=== PATIENT | male | born 1985 | race Caucasian/White ===

== ENCOUNTER 2019-08-29 11:08 | Emergency (ER) | payer OTHER ==
--- NOTE | 2019-08-29 12:00 | XR ---
EXAMINATION TYPE: XR chest 2V DATE OF EXAM: 08/29/2019 COMPARISON: NONE TECHNIQUE: PA and lateral views submitted. HISTORY: Chest pain FINDINGS: The lungs are clear and there is no pneumothorax, pleural effusion, or focal pneumonia. Inspiration with no overt failure. Biapical pleural thickening. IMPRESSION: 1. No acute process.
[2019-08-29] MEDS ORDERED: ONDANSETRON ODT 4 MG TAB PO STA (12:07)
[2019-08-29] MEDS ORDERED: HYDROcodone/APAP 5-325MG 1 EACH TAB PO STA (12:07)
[2019-08-29 12:28] LABS: Basophils % (A) 0 %; Eosinophils # (A) 0.1 k/uL (0-0.7); Eosinophils % (A) 0 %; HCT 48.6 % (39.0-53.0); HGB 16.9 gm/dL (13.0-17.5); Lymphocytes # (A) 1.9 k/uL (1.0-4.8); Lymphocytes % (A) 12 %; MCH 32.4 pg (25.0-35.0); MCHC 34.9 g/dL (31.0-37.0); MCV 93.1 fL (80.0-100.0); Mean Platelet Volume 8.6; Monocytes # (A) 0.5 k/uL (0-1.0); Monocytes % (A) 3 %; Neutrophils # (A) 12.8 k/uL (1.3-7.7); Neutrophils % (A) 83 %; Platelet Count 221 k/uL (150-450); RBC 5.22 m/uL (4.30-5.90); RDW 12.9 % (11.5-15.5); WBC 15.4 k/uL (3.8-10.6)
[2019-08-29] MEDS ORDERED: ALPRAZolam 1 MG TAB PO STA (12:37)
[2019-08-29 12:39] LABS: INR 0.9 (<1.2); Partial Thromboplastin Time 24.3 sec (22.0-30.0); Prothrombin Time 10.1 sec (9.0-12.0)
[2019-08-29 12:43] LABS: ALT 41 U/L (21-72); AST 28 U/L (17-59); African American GFR (CKD) >90 (>60 ml/min/1.73 sqM); Alkaline Phosphatase 68 U/L (38-126); Anion Gap 11 mmol/L; Blood Urea Nitrogen 14 mg/dL (9-20); Calcium 10.2 mg/dL (8.4-10.2); Carbon Dioxide 24 mmol/L (22-30); Chloride 105 mmol/L (98-107); Glucose 96 mg/dL (74-99); Magnesium 1.9 mg/dL (1.6-2.3); Non-African American GFR(CKD) >90 (>60 ml/min/1.73 sqM); Potassium 4.2 mmol/L (3.5-5.1); Sodium 140 mmol/L (137-145); Total Bilirubin 0.7 mg/dL (0.2-1.3); Total Protein 8.6 g/dL (6.3-8.2)
--- NOTE | 2019-08-29 13:17 | CT ---
EXAMINATION TYPE: CT abdomen pelvis w con DATE OF EXAM: 08/29/2019 COMPARISON: None INDICATION: Left sided pain with nausea and bowel changes. DLP: 1271.2 mGycm, Automated exposure control for dose reduction was used. CONTRAST: 100 mL of Isovue 300. Study performed without Oral Contrast TECHNIQUE: Axial images were obtained from above the diaphragm to the pubic rami in the axial plane a t 5 mm thick sections. Reconstructed images are reviewed on the computer in the coronal plane. FINDINGS: Limited CT sections are obtained the lung bases. The lung bases are clear. CT ABDOMEN: Liver: Normal Spleen: Normal Pancreas: Normal Adrenal glands: The adrenal glands are normal. Gallbladder: Normal Kidneys: No masses are evident. No hydronephrosis is present. No cysts are present. Delayed images were obtained through the kidneys, which remain unremarkable. Aorta: Vascular calcification is within the aorta. Inferior vena cava: Normal. CT PELVIS: Loops of bowel within the abdomen and pelvis are normal. There are loops of bowel which are incom pletely distended or lack oral contrast limiting their evaluation. Diverticulosis without acute diver ticulitis is within the proximal sigmoid colon. There are some small bowel loops distended with fluid and left lower quadrant could be some focal ileus. Appendix: Normal as visualized. Urinary bladder: Normal. Genitourinary structures: Prostate appears at the upper limits for size Osseous structures: No suspicious lytic or sclerotic lesions. IMPRESSIONS: 1. Diverticulosis without acute diverticulitis. 2. Mild focal ileus left lower quadrant of uncertain etiology.
--- NOTE | 2019-08-29 13:47 | ED ---
General Adult HPI - General Chief complaint: Chest Pain Stated complaint: abdominal & chest pain Time Seen by Provider: 08/29/19 11:35 Source: patient Mode of arrival: ambulatory Limitations: no limitations - History of Present Illness Initial comments: Patient complains of multiple issues. He has chest pain. He has belly pain. Symptoms have been present and getting worse for couple days. He has taken no medicines. He was not doing anything this began. He has no fever or chills. He has no focal weakness. He has no blood in the stool. He has no diaphoresis. He has no vomiting. He has no headache. His belly pain is in the left lower quadrant. It does not radiate anywhere. Nothing makes it better or worse. The chest pains in the middle of the chest. He complains of anxiety as well. He doesn't feel short of breath however. He has no pain or swelling in the arms or legs. He has 0 risk factors for pulmonary embolism or DVT. - Related Data Allergies Allergy/AdvReac Type Severity Reaction Status Date / Time No Known Allergies Allergy Verified 08/29/19 11:21 Review of Systems ROS Statement: Those systems with pertinent positive or pertinent negative responses have been documented in the HPI. ROS Other: All systems not noted in ROS Statement are negative. Past Medical History Past Medical History: No Reported History History of Any Multi-Drug Resistant Organisms: None Reported Past Surgical History: Orthopedic Surgery Past Psychological History: Bipolar, Depression Smoking Status: Never smoker Past Alcohol Use History: Occasional Past Drug Use History: Marijuana General Exam Limitations: no limitations General appearance: alert, in no apparent distress Head exam: Present: atraumatic, normocephalic, normal inspection Eye exam: Present: normal appearance, PERRL, EOMI. Absent: scleral icterus, c onjunctival injection, periorbital swelling ENT exam: Present: normal exam, mucous membranes moist Neck exam: Present: normal inspection. Absent: tenderness, meningismus, lymphadenopathy Respiratory exam: Present: normal lung sounds bilaterally. Absent: respiratory distress, wheezes, rales, rhonchi, stridor Cardiovascular Exam: Present: regular rate, normal rhythm, normal heart sounds. Absent: systolic murmur, diastolic murmur, rubs, gallop, clicks GI/Abdominal exam: Present: soft, normal bowel sounds. Absent: distended, tenderness, guarding, rebound, rigid Extremities exam: Present: normal inspection, full ROM, normal capillary refill. Absent: tenderness, pedal edema, joint swelling, calf tenderness Back exam: Present: normal inspection Neurological exam: Present: alert, oriented X3, CN II-XII intact Psychiatric exam: Present: normal affect, normal mood Skin exam: Present: warm, dry, intact, normal color. Absent: rash Course Vital Signs 08/29/19 08/29/19 08/29/19 11:19 11:52 12:00 Temperature 98.4 F Pulse Rate 83 87 85 Respiratory 19 27 H 20 Rate Blood Pressure 129/87 119/86 O2 Sat by Pulse 96 96 Oximetry 08/29/19 08/29/19 12:30 13:00 Temperature Pulse Rate 84 91 Respiratory 18 20 Rate Blood Pressure 111/91 122/94 O2 Sat by Pulse 97 96 Oximetry EKG Findings - EKG Comments: EKG Findings:: Twelve-lead EKG shows ventricular rate 76 bpm, normal [place] interval and QRS complexes, no ST elevation or depression, interpreted by me as normal sinus rhythm. Medical Decision Making - Medical Decision Making Patient has chest pain, belly pain. His laboratory studies do not show any acute emergency. Chest x-ray is normal. EKG is normal. CT abdomen and pelvis shows diverticulosis without diverticulitis. There is evidence of ileus. Could be causing his symptoms. He could have a viral syndrome. There is no evidence of any acute emergency condition that would require further workup or admission the hospital or surgery. At this time because he is able to tolerate oral intake and is feeling better after oral alprazolam I feel that he is stable and appropriate for outpatient follow-up. - Lab Data Result diagrams: 08/29/19 11:50 08/29/19 11:50 Lab Results 08/29/19 08/29/19 08/29/19 Range/Units 11:50 11:50 11:50 WBC 15.4 H (3.8-10.6) k/uL RBC 5.22 (4.30-5.90) m/uL Hgb 16.9 (13.0-17.5) gm/dL Hct 48.6 (39.0-53.0) % MCV 93.1 (80.0-100.0) fL MCH 32.4 (25.0-35.0) pg MCHC 34.9 (31.0-37.0) g/dL RDW 12.9 (11.5-15.5) % Plt Count 221 (150-450) k/uL Neutrophils % 83 % Lymphocytes % 12 % Monocytes % 3 % Eosinophils % 0 % Basophils % 0 % Neutrophils # 12.8 H (1.3-7.7) k/uL Lymphocytes # 1.9 (1.0-4.8) k/uL Monocytes # 0.5 (0-1.0) k/uL Eosinophils # 0.1 (0-0.7) k/uL Basophils # 0.0 (0-0.2) k/uL PT 10.1 (9.0-12.0) sec INR 0.9 (<1.2) APTT 24.3 (22.0-30.0) sec Sodium 140 (137-145) mmol/L Potassium 4.2 (3.5-5.1) mmol/L Chloride 105 (98-107) mmol/L Carbon Dioxide 24 (22-30) mmol/L Anion Gap 11 mmol/L BUN 14 (9-20) mg/dL Creatinine 0.97 (0.66-1.25) mg/dL Est GFR (CKD-EPI)AfAm >90 (>60 ml/min/1.73 sqM) Est GFR (CKD-EPI)NonAf >90 (>60 ml/min/1.73 sqM) Glucose 96 (74-99) mg/dL Calcium 10.2 (8.4-10.2) mg/dL Magnesium 1.9 (1.6-2.3) mg/dL Total Bilirubin 0.7 (0.2-1.3) mg/dL AST 28 (17-59) U/L ALT 41 (21-72) U/L Alkaline Phosphatase 68 (38-126) U/L Troponin I (0.000-0.034) ng/mL NT-Pro-B Natriuret Pep pg/mL Total Protein 8.6 H (6.3-8.2) g/dL Albumin 5.0 (3.5-5.0) g/dL Lipase 161 (23-300) U/L 08/29/19 08/29/19 Range/Units 11:50 11:50 WBC (3.8-10.6) k/uL RBC (4.30-5.90) m/uL Hgb (13.0-17.5) gm/dL Hct (39.0-53.0) % MCV (80.0-100.0) fL MCH (25.0-35.0) pg MCHC (31.0-37.0) g/dL RDW (11.5-15.5) % Plt Count (150-450) k/uL Neutrophils % % Lymphocytes % % Monocytes % % Eosinophils % % Basophils % % Neutrophils # (1.3-7.7) k/uL Lymphocytes # (1.0-4.8) k/uL Monocytes # (0-1.0) k/uL Eosinophils # (0-0.7) k/uL Basophils # (0-0.2) k/uL PT (9.0-12.0) sec INR (<1.2) APTT (22.0-30.0) sec Sodium (137-145) mmol/L Potassium (3.5-5.1) mmol/L Chloride (98-107) mmol/L Carbon Dioxide (22-30) mmol/L Anion Gap mmol/L BUN (9-20) mg/dL Creatinine (0.66-1.25) mg/dL Est GFR (CKD-EPI)AfAm (>60 ml/min/1.73 sqM) Est GFR (CKD-EPI)NonAf (>60 ml/min/1.73 sqM) Glucose (74-99) mg/dL Calcium (8.4-10.2) mg/dL Magnesium (1.6-2.3) mg/dL Total Bilirubin (0.2-1.3) mg/dL AST (17-59) U/L ALT (21-72) U/L Alkaline Phosphatase (38-126) U/L Troponin I <0.012 (0.000-0.034) ng/mL NT-Pro-B Natriuret Pep 41 pg/mL Total Protein (6.3-8.2) g/dL Albumin (3.5-5.0) g/dL Lipase (23-300) U/L Disposition Clinical Impression: Ileus Disposition: HOME SELF-CARE Condition: Good Instructions (If sedation given, give patient instructions): Ileus (ED) Is patient prescribed a controlled substance at d/c from ED?: No Referrals: None,Stated [Primary Care Provider] - 1-2 days Christophe Valencia MD [STAFF PHYSICIAN] - 1-2 days Schuyler Patel MD [STAFF PHYSICIAN] - 1-2 days
[2019-08-29 14:03] VITALS: BP 114/83; PULSE 94; RESP 16; TEMP 98
== END 2019-08-29 14:03 | disposition home or self-care (01) ==
LOC: EC 11:08
DX: K56.7 Ileus, unspecified (principal); K57.30 Diverticulosis of large intestine without perforation or abscess without bleeding
CPT/HCPCS: 36415; 93005; 83880; 80053; 83690; 83735; 84484; 85025; 85610; 85730; 71046; 74177; 99285; Q9967

== ENCOUNTER 2020-01-27 10:01 | Inpatient (IN) | payer OTHER ==
[2020-01-27] MEDS ORDERED: ONDANSETRON 4 MG/2 ML VIAL IVP STA (10:36)
[2020-01-27] MEDS ORDERED: SODIUM CHLORIDE 0.9% 2,000 ML IV STA (10:36)
[2020-01-27] MEDS ORDERED: KETOROLAC 30 MG/ML 1 ML VIAL IVP STA (10:36)
[2020-01-27] MEDS ORDERED: HYDROmorphone 1 MG/ML 1 ML SYRINGE IVP STA ×3 (10:36→17:05)
[2020-01-27 11:18] LABS: Basophils # (A) 0.1 k/uL (0-0.2); Basophils % (A) 1 %; Eosinophils # (A) 0.2 k/uL (0-0.7); Eosinophils % (A) 2 %; HGB 17.8 gm/dL (13.0-17.5); Lymphocytes # (A) 2.7 k/uL (1.0-4.8); Lymphocytes % (A) 19 %; MCH 32.4 pg (25.0-35.0); MCHC 34.2 g/dL (31.0-37.0); MCV 94.7 fL (80.0-100.0); Mean Platelet Volume 8.5; Monocytes # (A) 0.8 k/uL (0-1.0); Monocytes % (A) 6 %; Neutrophils # (A) 10.3 k/uL (1.3-7.7); Neutrophils % (A) 71 %; Platelet Count 231 k/uL (150-450); RBC 5.49 m/uL (4.30-5.90); RDW 12.8 % (11.5-15.5); WBC 14.5 k/uL (3.8-10.6)
[2020-01-27 11:21] LABS: Appearance,Urine Cloudy (Clear); Bacteria,Urine Moderate /hpf; Bilirubin,Urine Negative (Negative); Blood,Urine Negative (Negative); Color,Urine Yellow; Glucose,Urine (UA) Negative (Negative); Ketones,Urine Negative (Negative); Leukocyte Esterase,Urine Negative (Negative); Mucus,Urine Many /hpf; Nitrite,Urine Negative (Negative); Protein,Urine 1+ (Negative); RBC,Urine 2 /hpf (0-5); Specific Gravity,Urine 1.023 (1.001-1.035); Sperm,Urine Moderate /hpf; Squamous Epithelial Cell,Urine 1 /hpf (0-4); Urobilinogen,Urine <2.0 mg/dL (<2.0); WBC,Urine 3 /hpf (0-5)
[2020-01-27 11:33] LABS: Prothrombin Time 10.6 sec (9.0-12.0)
[2020-01-27 11:39] LABS: Albumin 5.3 g/dL (3.5-5.0); Calcium 10.3 mg/dL (8.4-10.2); Potassium 4.4 mmol/L (3.5-5.1); Total Bilirubin 1.3 mg/dL (0.2-1.3); Total Protein 9.1 g/dL (6.3-8.2)
--- NOTE | 2020-01-27 11:46 | XR ---
EXAMINATION TYPE: XR KUB DATE OF EXAM: 01/27/2020 11:21 AM CLINICAL HISTORY: Right posterior flank pain TECHNIQUE: Single upright image of the abdomen is obtained. COMPARISON: None. FINDINGS: No pneumoperitoneum. Few air-fluid levels in the large and small bowel. Mildly prominent lo ops of centralized small bowel. No suspicious calcification in the abdomen or pelvis. Lung bases are well aerated. IMPRESSION: Findings suggesting mild ileus.
--- NOTE | 2020-01-27 12:18 | CT ---
EXAMINATION TYPE: CT abdomen pelvis w con DATE OF EXAM: 01/27/2020 COMPARISON: 08/29/2019 HISTORY: Rt flank pain CT DLP: 1830.2 mGycm Automated exposure control for dose reduction was used. TECHNIQUE: Helical acquisition of images was performed from the lung bases through the pelvis. CONTRAST: Performed without Oral Contrast and with IV Contrast, patient injected with 100 mL of Isovue 300. FINDINGS: LUNG BASES: No significant abnormality is appreciated. LIVER/GB: No significant abnormality is appreciated. No radiopaque cholelithiasis on CT. PANCREAS: Unremarkable enhancement without ductal dilatation SPLEEN: No splenomegaly. ADRENALS: No nodularity or thickening. KIDNEYS: The kidneys enhance symmetrically without hydronephrosis. FREE AIR: No free air is visualized. ADENOPATHY: No greater than 1 cm short axis lymph node in the abdomen or pelvis. OSSEOUS STRUCTURES: No significant abnormality is seen. BOWEL: Appendix is air-filled and within normal limits. There are numerous colonic diverticula with pericolonic fat stranding in the sigmoid colon and adjacent fascial plane thickening. Foci of air adj acent to the sigmoid colon appear to be located within adjacent diverticula that are thin-walled rath er than pneumoperitoneum. Inspissated secretions are seen within some diverticula. No pericolonic flu id collection to suggest abscess. Additional scattered diverticula are seen throughout the descending colon without pericolonic fat stranding. Mildly dilated loop of small bowel in the IMPRESSION: ACUTE UNCOMPLICATED SIGMOID DIVERTICULITIS.
[2020-01-27] MEDS ORDERED: LEVOFLOXACIN 750MG-D5W PMX 750 MG in DEXTROSE/WATER 1 150ML.BAG IVPB STA (12:35)
[2020-01-27] MEDS ORDERED: metroNIDAZOLE-NS PMX 500 MG in SALINE 1 100ML.BAG IVPB STA (12:35)
--- NOTE | 2020-01-27 12:36 | ED ---
Abdominal Pain HPI - General Chief Complaint: Abdominal Pain Stated Complaint: lower left abd Time Seen by Provider: 01/27/20 10:14 Source: patient, RN notes reviewed, old records reviewed Mode of arrival: ambulatory Limitations: no limitations - History of Present Illness Initial Comments: Patient is a 34-year-old male presents to return today with onset diffuse abdominal pain worse on the left side over the past day. Patient reports that he's had some nausea. Also complains of some dysuria. Patient reports that the pain radiates towards his back and flank area. Patient reports these had no history of drinking. Denies any drug use. Denies any changes in bowel habits. He does report that he did have some dysuria denies any concern for 60 transmitted infection. - Related Data Home Medications Medication Instructions Recorded Confirmed No Known Home Medications 01/27/20 01/27/20 Allergies Allergy/AdvReac Type Severity Reaction Status Date / Time No Known Allergies Allergy Verified 01/27/20 12:50 Review of Systems ROS Statement: Those systems with pertinent positive or pertinent negative responses have been documented in the HPI. ROS Other: All systems not noted in ROS Statement are negative. 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 Absent: scleral icterus, conjunctival injection, periorbital swelling ENT exam: Present: normal exam, mucous membranes moist Neck exam: Present: normal inspection. Absent: tenderness, meningismus, lymphadenopathy Respiratory exam: Present: normal lung sounds bilaterally. Absent: respiratory distress, wheezes, rales, rhonchi, stridor Cardiovascular Exam: Present: regular rate, normal rhythm, normal heart sounds. Absent: systolic murmur, diastolic murmur, rubs, gallop, clicks GI/Abdominal exam: Present: soft, tenderness (diffuse ), normal bowel sounds. Absent: distended, guarding, rebound, rigid Extremities exam: Present: normal inspection, full ROM, normal capillary refill. Absent: tenderness, pedal edema, joint swelling, calf tenderness Back exam: Present: normal inspection Neurological exam: Present: alert, oriented X3, CN II-XII intact Psychiatric exam: Present: normal affect, normal mood Skin exam: Present: warm, dry, intact, normal color. Absent: rash Course Vital Signs 01/27/20 10:07 Temperature 98.0 F Pulse Rate 95 Respiratory 20 Rate Blood Pressure 115/85 O2 Sat by Pulse 99 Oximetry Medical Decision Making - Medical Decision Making 32-year-old male presents return to diffuse abdominal pain nausea vomiting and some pain rating to the flank. At this time patient's labwork was reviewed evidence of leukocytosis. Patient also has evidence of pancreatitis with lipase of 900. He does not drink. Patient CT on pelvis was completed evidence of diverticulitis. He started on Levaquin and Flagyl. Patient will be given IV fluids remaining nothing by mouth. - Lab Data Result diagrams: 01/27/20 10:57 01/27/20 10:57 Lab Results 01/27/20 01/27/20 01/27/20 Range/Units 10:57 10:57 10:57 WBC 14.5 H (3.8-10.6) k/uL RBC 5.49 (4.30-5.90) m/uL Hgb 17.8 H (13.0-17.5) gm/dL Hct 52.0 (39.0-53.0) % MCV 94.7 (80.0-100.0) fL MCH 32.4 (25.0-35.0) pg MCHC 34.2 (31.0-37.0) g/dL RDW 12.8 (11.5-15.5) % Plt Count 231 (150-450) k/uL Neutrophils % 71 % Lymphocytes % 19 % Monocytes % 6 % Eosinophils % 2 % Basophils % 1 % Neutrophils # 10.3 H (1.3-7.7) k/uL Lymphocytes # 2.7 (1.0-4.8) k/uL Monocytes # 0.8 (0-1.0) k/uL Eosinophils # 0.2 (0-0.7) k/uL Basophils # 0.1 (0-0.2) k/uL PT 10.6 (9.0-12.0) sec INR 1.0 (<1.2) APTT 24.0 (22.0-30.0) sec Sodium (137-145) mmol/L Potassium (3.5-5.1) mmol/L Chloride (98-107) mmol/L Carbon Dioxide (22-30) mmol/L Anion Gap mmol/L BUN (9-20) mg/dL Creatinine (0.66-1.25) mg/dL Est GFR (CKD-EPI)AfAm (>60 ml/min/1.73 sqM) Est GFR (CKD-EPI)NonAf (>60 ml/min/1.73 sqM) Glucose (74-99) mg/dL Plasma Lactic Acid Ross (0.7-2.0) mmol/L Calcium (8.4-10.2) mg/dL Total Bilirubin (0.2-1.3) mg/dL AST (17-59) U/L ALT (4-49) U/L Alkaline Phosphatase (38-126) U/L Total Protein (6.3-8.2) g/dL Albumin (3.5-5.0) g/dL Amylase (30-110) U/L Lipase (23-300) U/L Urine Color Yellow Urine Appearance Cloudy (Clear) Urine pH 6.0 (5.0-8.0) Ur Specific [place] 1.023 (1.001-1.035) Urine Protein 1+ H (Negative) Urine Glucose (UA) Negative (Negative) Urine Ketones Negative (Negative) Urine Blood Negative (Negative) Urine Nitrite Negative (Negative) Urine Bilirubin Negative (Negative) Urine Urobilinogen <2.0 (<2.0) mg/dL Ur Leukocyte Esterase Negative (Negative) Urine RBC 2 (0-5) /hpf Urine WBC 3 (0-5) /hpf Ur Squamous Epith Cells 1 (0-4) /hpf Urine Bacteria Moderate H (None) /hpf Urine Mucus Many H (None) /hpf Urine Sperm Moderate H (None) /hpf 01/27/20 01/27/20 Range/Units 10:57 10:57 WBC (3.8-10.6) k/uL RBC (4.30-5.90) m/uL Hgb (13.0-17.5) gm/dL Hct (39.0-53.0) % MCV (80.0-100.0) fL MCH (25.0-35.0) pg MCHC (31.0-37.0) g/dL RDW (11.5-15.5) % Plt Count (150-450) k/uL Neutrophils % % Lymphocytes % % Monocytes % % Eosinophils % % Basophils % % Neutrophils # (1.3-7.7) k/uL Lymphocytes # (1.0-4.8) k/uL Monocytes # (0-1.0) k/uL Eosinophils # (0-0.7) k/uL Basophils # (0-0.2) k/uL PT (9.0-12.0) sec INR (<1.2) APTT (22.0-30.0) sec Sodium 139 (137-145) mmol/L Potassium 4.4 (3.5-5.1) mmol/L Chloride 103 (98-107) mmol/L Carbon Dioxide 21 L (22-30) mmol/L Anion Gap 15 mmol/L BUN 17 (9-20) mg/dL Creatinine 1.24 (0.66-1.25) mg/dL Est GFR (CKD-EPI)AfAm 89 (>60 ml/min/1.73 sqM) Est GFR (CKD-EPI)NonAf 77 (>60 ml/min/1.73 sqM) Glucose 100 H (74-99) mg/dL Plasma Lactic Acid Ross 1.1 (0.7-2.0) mmol/L Calcium 10.3 H (8.4-10.2) mg/dL Total Bilirubin 1.3 (0.2-1.3) mg/dL AST 38 (17-59) U/L ALT 48 (4-49) U/L Alkaline Phosphatase 67 (38-126) U/L Total Protein 9.1 H (6.3-8.2) g/dL Albumin 5.3 H (3.5-5.0) g/dL Amylase 185 H (30-110) U/L Lipase 916 H (23-300) U/L Urine Color Urine Appearance (Clear) Urine pH (5.0-8.0) Ur Specific [place] (1.001-1.035) Urine Protein (Negative) Urine Glucose (UA) (Negative) Urine Ketones (Negative) Urine Blood (Negative) Urine Nitrite (Negative) Urine Bilirubin (Negative) Urine Urobilinogen (<2.0) mg/dL Ur Leukocyte Esterase (Negative) Urine RBC (0-5) /hpf Urine WBC (0-5) /hpf Ur Squamous Epith Cells (0-4) /hpf Urine Bacteria (None) /hpf Urine Mucus (None) /hpf Urine Sperm (None) /hpf - Radiology Data Radiology results: report reviewed CT shows acute on proper Sigmoid diverticulitis. Disposition Clinical Impression: Pancreatitis, Diverticulitis Disposition: ADMITTED IP TO THIS [facility] Condition: Stable Is patient prescribed a controlled substance at d/c from ED?: No Referrals: None,Stated [Primary Care Provider] - 1-2 days Time of Disposition: 12:53
[2020-01-27] MEDS ORDERED: NALOXONE 0.4 MG/ML 1 ML VIAL IV PRN (12:55)
[2020-01-27] MEDS ORDERED: ACETAMINOPHEN TAB 325 MG TAB PO PRN (12:55)
[2020-01-27] MEDS: SODIUM CHLORIDE 0.9% 1,000 ML IV SCH ×2 (13:00→15:41)
[2020-01-27] MEDS: LORazepam 2 MG/ML INJ IV PRN ×2 (13:53→23:00)
[2020-01-27] MEDS ORDERED: MORPHINE SULFATE 4 MG/ML SYRINGE IVP PRN (14:23)
[2020-01-27] MEDS ORDERED: LORazepam 2 MG/ML INJ IV STA (17:06)
--- NOTE | 2020-01-27 17:11 | P.HPIM ---
History of Present Illness H&P Date: 01/27/20 Chief Complaint: Pancreatitis, diverticulitis 34-year-old male with PMH of rhabdomyolysis presents the ED for abdominal pain. Patient reports severe epigastric discomfort that started after lunch yesterday. Pain is 9 out of 10 in severity, sharp and stabbing. Pain did radiate to the right side and towards the back. Patient reports discomfort in his testicles as well. Patient states that the pain was relentless from 10 PM to 6 AM. Patient had rectal urgency and diarrhea with mucus. He does not drink alcohol or smoke cigarettes. His pain did not improve, spotted him to come to the ED. In the ED, his vital signs are stable except for pulse of 101. CBC showed leukocytosis of 14.5. INR was 1. CMP showed a bicarbonate of 21, glucose 100, calcium 10.3. Amylase was 185. Lipase was 916. Coronavirus testing was negative. Urinalysis was relatively benign. CT of the abdomen and pelvis showed acute uncomplicated sigmoid diverticulitis. Patient is admitted for anticipated greater than 48 hour admission for diverticulitis, pain control, pancreatitis, IV antibiotics and GI evaluation. Review of Systems Pertinent positives and negatives as discussed in HPI, a complete review of systems was performed and all other systems are negative. 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 History of Any Multi-Drug Resistant Organisms: None Reported Past Surgical History: Orthopedic Surgery Past Anesthesia/Blood Transfusion Reactions: Previous Problems w/ Anesthesia Additional Past Anesthesia/Blood Transfusion Reaction / Comment(s): Patient wakes up during procedures Past Psychological History: Bipolar, Depression Smoking Status: Never smoker Past Alcohol Use History: Occasional Past Drug Use History: Marijuana - Past Family History Mother Family Medical History: No Reported History Medications and Allergies Home Medications Medication Instructions Recorded Confirmed Type No Known Home Medications 01/27/20 01/27/20 History Allergies Allergy/AdvReac Type Severity Reaction Status Date / Time No Known Allergies Allergy Verified 01/27/20 12:50 Physical Exam Vitals: Vital Signs Temp Pulse Pulse Resp BP BP Pulse Ox 01/27/20 15:44 98.6 F 101 H 16 113/75 95 01/27/20 15:39 98.2 F 01/27/20 14:56 94 16 138/87 99 01/27/20 10:07 98.0 F 95 20 115/85 99 Intake and Output 01/27/20 01/27/20 01/27/20 06:59 14:59 22:59 Other: Weight 100.425 kg General: [non toxic], [no distress], [appears at stated age] Derm: [warm], [dry] Head: [atraumatic], [normocephalic], [symmetric] Eyes: [EOMI], [no lid lag], [anicteric sclera] Mouth: [no lip lesion], [mucus membranes moist] Cardiovascular: [S1S2 reg], [tachycardic], [positive DP pulse bilateral], Lungs: [CTA bilateral], [no rhonchi, no rales] , [no accessory muscle use] Abdominal: [soft], [tenderness to palpation in the epigastric area without rebound], [no guarding], [no appreciable organomegaly] Ext: [no gross muscle atrophy], [no edema], [no contractures] Neuro: [ CN II-XI grossly intact], [no focal neuro deficits] Psych: [Alert], [oriented], [appropriate affect] Results CBC & Chem 7: 01/27/20 10:57 01/27/20 10:57 Labs: Abnormal Lab Results - Last 24 Hours (Table) 01/27/20 01/27/20 01/27/20 Range/Units 10:57 10:57 10:57 WBC 14.5 H (3.8-10.6) k/uL Hgb 17.8 H (13.0-17.5) gm/dL Neutrophils # 10.3 H (1.3-7.7) k/uL Carbon Dioxide 21 L (22-30) mmol/L Glucose 100 H (74-99) mg/dL Calcium 10.3 H (8.4-10.2) mg/dL Total Protein 9.1 H (6.3-8.2) g/dL Albumin 5.3 H (3.5-5.0) g/dL Amylase 185 H (30-110) U/L Lipase 916 H (23-300) U/L Urine Protein 1+ H (Negative) Urine Bacteria Moderate H (None) /hpf Urine Mucus Many H (None) /hpf Urine Sperm Moderate H (None) /hpf Thrombosis Risk Factor Assmnt - Choose All That Apply Any of the Below Risk Factors Present?: No Other Risk Factors: No Other congenital or acquired thrombophilia - If yes, enter type in comment: No Thrombosis Risk Factor Assessment Level: Very Low Risk Assessment and Plan Assessment: Sepsis related to acute diverticulitis Acute pancreatitis History of severe rhabdomyolysis Patient meets sepsis criteria. Leukocytosis. Tachycardia. Positive source of infection seen on CT abdomen and pelvis. Plans: Start Flagyl and levofloxacin. Tylenol as needed for fever and chills. Pain control with Dilaudid 1 mg every 3 hours as needed. Zofran as needed for nausea or vomiting. Continue normal saline at 100 mL per hour. Telemetry monitoring. Follow blood cultures. Follow GI consultation. Patient has elevated lipase and amylase with pain consistent of pancreatitis. Plans: Clear liquid diet and advance. IVF as above. Pain control as above. Protonix IV. Patient has a history of severe rhabdomyolysis requiring ICU monitoring. Patient relates this to extreme exercise 12 years ago. Plans: Follow CPK, though patient asymptomatic, as this could be a cause for his pancreatitis. DVT prophylaxis: [SCD] Discussed with: [Patient] Anticipated discharge: [2-3 days] Anticipated discharge place: [Home] A total of [45] minutes was spent on the care of this complex patient more than 50% of the time was spent in counseling and care coordination. Patient will be full code.
[2020-01-27] MEDS ORDERED: CALCIUM CARBONATE 500 MG CHEWABLE PO PRN (20:51)
[2020-01-27] MEDS: metroNIDAZOLE-NS PMX 500 MG in SALINE 1 100ML.BAG IVPB SCH (22:43)
[2020-01-27] MEDS: MAG HYDROX/AL HYDROX/SIMETH 30 ML CUP PO PRN (22:58)
[2020-01-27] MEDS: HYDROmorphone 1 MG/ML 1 ML SYRINGE IV PRN (22:59)
[2020-01-27] MEDS: ONDANSETRON 4 MG/2 ML VIAL IVP PRN (23:40)
[2020-01-28] MEDS: KETOROLAC 30 MG/ML 1 ML VIAL IVP PRN ×2 (02:24→08:10)
[2020-01-28] MEDS: metroNIDAZOLE-NS PMX 500 MG in SALINE 1 100ML.BAG IVPB SCH ×3 (06:21→22:34)
[2020-01-28] MEDS: HYDROmorphone 1 MG/ML 1 ML SYRINGE IV PRN ×5 (06:22→19:35)
[2020-01-28] MEDS: PANTOPRAZOLE 40 MG/10 ML VIAL IV SCH (08:06)
[2020-01-28] MEDS: ONDANSETRON 4 MG/2 ML VIAL IVP PRN (08:06)
[2020-01-28] MEDS: LORazepam 2 MG/ML INJ IV PRN (08:06)
[2020-01-28 08:12] LABS: Basophils % (A) 0 %; Eosinophils # (A) 0.1 k/uL (0-0.7); Eosinophils % (A) 2 %; HCT 46.7 % (39.0-53.0); HGB 15.3 gm/dL (13.0-17.5); Lymphocytes # (A) 1.8 k/uL (1.0-4.8); Lymphocytes % (A) 24 %; MCH 31.7 pg (25.0-35.0); MCHC 32.8 g/dL (31.0-37.0); MCV 96.6 fL (80.0-100.0); Mean Platelet Volume 8.4; Monocytes # (A) 0.4 k/uL (0-1.0); Monocytes % (A) 6 %; Neutrophils # (A) 4.9 k/uL (1.3-7.7); Neutrophils % (A) 66 %; Platelet Count 183 k/uL (150-450); RBC 4.84 m/uL (4.30-5.90); RDW 12.8 % (11.5-15.5); WBC 7.4 k/uL (3.8-10.6)
[2020-01-28 08:29] LABS: ALT 35 U/L (4-49); AST 33 U/L (17-59); African American GFR (CKD) >90 (>60 ml/min/1.73 sqM); Albumin 4.3 g/dL (3.5-5.0); Alkaline Phosphatase 49 U/L (38-126); Amylase 172 U/L (30-110); Anion Gap 10 mmol/L; Blood Urea Nitrogen 17 mg/dL (9-20); Calcium 9.1 mg/dL (8.4-10.2); Carbon Dioxide 25 mmol/L (22-30); Chloride 102 mmol/L (98-107); Creatine Kinase 391 U/L (55-170); Glucose 89 mg/dL (74-99); Non-African American GFR(CKD) >90 (>60 ml/min/1.73 sqM); Potassium 4.3 mmol/L (3.5-5.1); Sodium 137 mmol/L (137-145); Total Protein 7.3 g/dL (6.3-8.2)
[2020-01-28] MEDS: MAG HYDROX/AL HYDROX/SIMETH 30 ML CUP PO PRN (09:52)
[2020-01-28] MEDS ORDERED: ALPRAZolam 1 MG TAB PO PRN (11:20)
--- NOTE | 2020-01-28 11:28 | P.PN ---
Subjective Progress Note Date: 01/28/20 Principal diagnosis: Pain Patient still having severe abdominal pain, has severe nausea and vomiting as well. No bowel movement yet. Has not eaten anything for the past 2-3 days according to him. No fevers or chills. Objective - Vital Signs Vital signs: Vital Signs Temp 97.6 F 01/28/20 07:15 Pulse 77 01/28/20 07:15 Resp 18 01/28/20 07:15 BP 116/71 01/28/20 07:15 Pulse Ox 96 01/28/20 07:15 Intake & Output 01/27/20 01/28/20 01/28/20 18:59 06:59 18:59 Intake Total 1700 Output Total 200 Balance 1500 Weight 100.425 kg Intake: Intake, IV Titration 1700 Amount Sodium Chloride 0.9% 1, 1600 000 ml @ 100 mls/hr IV . Q10H [facility] Rx#:[id number] metroNIDAZOLE-NS PMX 500 100 mg In Saline 1 100ml.bag @ 100 mls/hr IVPB Q8H [facility] Rx#:[id number] Output: Emesis 200 Other: Voiding Method Toilet # Voids 2 # Emeses 1 - Exam Constitutional: No acute distress, conversant, pleasant Eyes:Anicteric sclerae, moist conjunctiva, no lid-lag, PERRLA, ENMT: Oropharynx clear, no erythema, exudates Neck: Supple, FROM, no masses, or JVD, No carotid bruits, No thyromegaly Lungs: Clear to auscultation, Clear to percussion, Normal respiratory effort, no accessory muscle use Cardiovascular: Heart regular in rate and rhythm, No murmurs, gallops, or rubs, No peripheral edema Abdominal: Soft, tender especially in the left lower quadrant, no guarding, rebound or rigidity, Normoactive bowel sounds, No hepatomegaly, No splenomegaly, No palpable mass Skin: Normal temperature, tone, texture, turgor, no induration, No subcutaneous nodules, No rash, lesions, No ulcers Extremities: No digital cyanosis, No clubbing, Pedal pulses intact and symmetri vianey, Radial pulses intact and symmetrical, No calf tenderness Psychiatric: Alert and oriented to person, place and time, appropriate affect, intact judgement Neuro: Muscles Strength 5/5 in all 4 extremities, Sensation to light touch grossly present throughout, Cranial nerves II-XII grossly intact, no focal sensory deficits - Labs CBC & Chem 7: 01/28/20 06:59 01/28/20 06:59 Labs: Abnormal Lab Results - Last 24 Hours (Table) 01/27/20 01/28/20 Range/Units 10:57 06:59 Carbon Dioxide 21 L (22-30) mmol/L Glucose 100 H (74-99) mg/dL Calcium 10.3 H (8.4-10.2) mg/dL Creatine Kinase 391 H (55-170) U/L Total Protein 9.1 H (6.3-8.2) g/dL Albumin 5.3 H (3.5-5.0) g/dL Amylase 185 H 172 H (30-110) U/L Lipase 916 H 746 H (23-300) U/L Microbiology - Last 24 Hours (Table) 01/27/20 10:57 Urine Culture - Preliminary Urine,Voided Assessment and Plan Plan: Sepsis related to acute diverticulitis Acute pancreatitis Severe anxiety Nausea and vomiting History of severe rhabdomyolysis Continue Flagyl and levofloxacin. Tylenol as needed for fever and chills. Add reglan, continue Zofran Xanax for anxiety Continue normal saline at 100 mL per hour. Follow blood cultures. Follow GI consultation. Protonix IV.
[2020-01-28] MEDS: METOCLOPRAMIDE 5 MG/ML 2 ML VIAL IVP SCH ×3 (11:34→23:24)
[2020-01-28] MEDS: ALPRAZolam 1 MG TAB PO PRN ×3 (11:34→23:24)
[2020-01-28] MEDS: LEVOFLOXACIN 750MG-D5W PMX 750 MG in DEXTROSE/WATER 1 150ML.BAG IVPB SCH (18:13)
[2020-01-28] MEDS: MELATONIN 5 MG TABLET PO SCH (21:22)
[2020-01-29] MEDS: METOCLOPRAMIDE 5 MG/ML 2 ML VIAL IVP SCH ×4 (06:01→23:13)
[2020-01-29] MEDS: metroNIDAZOLE-NS PMX 500 MG in SALINE 1 100ML.BAG IVPB SCH ×3 (06:02→22:16)
[2020-01-29] MEDS: HYDROmorphone 1 MG/ML 1 ML SYRINGE IV PRN ×4 (06:06→16:15)
[2020-01-29] MEDS: MAG HYDROX/AL HYDROX/SIMETH 30 ML CUP PO PRN (07:50)
[2020-01-29] MEDS: PANTOPRAZOLE 40 MG/10 ML VIAL IV SCH (07:50)
[2020-01-29] MEDS: ALPRAZolam 1 MG TAB PO PRN ×2 (07:55→18:01)
[2020-01-29 08:40] LABS: Basophils % (A) 0 %; Eosinophils # (A) 0.2 k/uL (0-0.7); Eosinophils % (A) 3 %; HCT 44.7 % (39.0-53.0); HGB 15.2 gm/dL (13.0-17.5); Lymphocytes # (A) 1.6 k/uL (1.0-4.8); Lymphocytes % (A) 28 %; MCH 32.4 pg (25.0-35.0); MCHC 33.9 g/dL (31.0-37.0); MCV 95.6 fL (80.0-100.0); Mean Platelet Volume 8.2; Monocytes # (A) 0.3 k/uL (0-1.0); Monocytes % (A) 6 %; Neutrophils # (A) 3.5 k/uL (1.3-7.7); Neutrophils % (A) 62 %; Platelet Count 172 k/uL (150-450); RBC 4.67 m/uL (4.30-5.90); RDW 12.9 % (11.5-15.5); WBC 5.7 k/uL (3.8-10.6)
[2020-01-29] MEDS: ONDANSETRON 4 MG/2 ML VIAL IVP PRN (08:45)
[2020-01-29 08:54] LABS: ALT 31 U/L (4-49); AST 30 U/L (17-59); African American GFR (CKD) >90 (>60 ml/min/1.73 sqM); Alkaline Phosphatase 43 U/L (38-126); Amylase 64 U/L (30-110); Anion Gap 6 mmol/L; Blood Urea Nitrogen 12 mg/dL (9-20); Carbon Dioxide 26 mmol/L (22-30); Chloride 105 mmol/L (98-107); Glucose 96 mg/dL (74-99); Non-African American GFR(CKD) >90 (>60 ml/min/1.73 sqM); Potassium 4.4 mmol/L (3.5-5.1); Sodium 137 mmol/L (137-145); Total Bilirubin 0.5 mg/dL (0.2-1.3)
--- NOTE | 2020-01-29 09:09 | P.CONS ---
History of Present Illness - Reason for Consult Consult date: 01/28/20 Diverticulitis Requesting physician: Obed Rodriguez - Chief Complaint Abdominal pain - History of Present Illness 34-year-old male with a medical history significant for rhabdomyolysis who presented to the hospital for evaluation of abdominal pain. Patient reports sha rp, stabbing lower abdominal pain located centrally beneath the umbilicus and with radiation into his groin. The pain started suddenly the day prior to admission and persisted. The patient at the sensation of needing to evacuate his bowels however was unable to pass stool. He subsequently had 1 episode of loose stool. He denied any blood per rectum or melanotic stool. He also reported lower abdominal cramping with the episode. He denies any nausea or vomiting. The patient presented to the emergency department for further evaluation and was found to have uncomplicated sigmoid diverticulitis on computed tomography scan of the abdomen. No evidence of pancreatitis on computed tomography scan or typical upper abdominal pain with radiation into the back. Amylase and lipase mildly elevated at 185 and 916 respectively. Other laboratory evaluation significant for WBC 7.4, hemoglobin 15.7, platelet count 183,000, total bilirubin 1, alkaline phosphatase 44, AST 33 and ALTs 35. The patient does report EGD and colonoscopy approximately 7 years ago in [place] significant for polypectomy. Review of Systems REVIEW OF SYSTEMS: CONSTITUTIONAL: Denies any fevers, chills, weight change or fatigue. CARDIOVASCULAR: Denies any chest pain, palpitations high or low blood pressures RESPIRATORY: Denies any shortness of breath, hemoptysis or cough. GENITOURINARY: No dysuria or hematuria. MUSCULOSKELETAL: No weakness reported. SKIN: Denies any new rashes or lesions, jaundice or pallor. PSYCHIATRIC: Denies any depression or anxiety. NEUROLOGY: Denies headache, denies any new focal deficits. EARS/NOSE/THROAT: No recent hearing change, congestion, nasal discharge or sore throat. EYES: No pain in eyes, discharge or change in vision. GASTROINTESTINAL: As per HPI. 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 History of Any Multi-Drug Resistant Organisms: None Reported Past Surgical History: Orthopedic Surgery Past Anesthesia/Blood Transfusion Reactions: Previous Problems w/ Anesthesia Additional Past Anesthesia/Blood Transfusion Reaction / Comm: Patient wakes up during procedures Past Psychological History: Bipolar, Depression Smoking Status: Never smoker Past Alcohol Use History: Occasional Past Drug Use History: Marijuana - Past Family History Mother Family Medical History: No Reported History Medications and Allergies Home Medications Medication Instructions Recorded Confirmed Type No Known Home Medications 01/27/20 01/27/20 History Allergies Allergy/AdvReac Type Severity Reaction Status Date / Time No Known Allergies Allergy Verified 01/27/20 12:50 Physical Exam Vitals: Vital Signs Temp Pulse Pulse Resp BP BP Pulse Ox 01/28/20 07:15 97.6 F 77 18 116/71 96 01/28/20 01:57 97.9 F 97 18 132/72 97 01/28/20 00:00 16 01/27/20 20:00 100 16 01/27/20 19:00 97.9 F 100 16 127/88 95 01/27/20 15:44 98.6 F 101 H 16 113/75 95 01/27/20 15:39 98.2 F 01/27/20 14:56 94 16 138/87 99 Intake and Output 01/27/20 01/28/20 01/28/20 22:59 06:59 14:59 Intake Total 900 800 Output Total 200 Balance 900 600 Intake: Intake, IV Titration 900 800 Amount Sodium Chloride 0.9% 1, 800 800 000 ml @ 100 mls/hr IV . Q10H [facility] Rx#:[id number] metroNIDAZOLE-NS PMX 500 100 mg In Saline 1 100ml.bag @ 100 mls/hr IVPB Q8H [facility] Rx#:[id number] Output: Emesis 200 Other: Voiding Method Toilet Toilet # Voids 2 2 # Emeses 1 On physical examination, patient appears comfortable in no apparent distress. HEAD: Normocephalic, atraumatic. EYES: No scleral icterus. No conjunctival injection. MOUTH: No lesions, tongue midline. NECK: Trachea midline, no gross abnormalities. CHEST: Clear to auscultation with no wheezing or rhonchi appreciated. HEART: Regular rate and rhythm. ABDOMEN: Soft, moderately tender to palpation in the lower abdomen. Bowel sounds are positive. No organomegaly. No guarding or rigidity. EXTREMITIES: No pedal edema. SKIN: No rashes, no jaundice. NEUROLOGIC: Alert and oriented x3. No focal deficits. Results CBC & Chem 7: 01/29/20 08:23 01/29/20 08:23 Labs: Abnormal Lab Results - Last 24 Hours (Table) 01/28/20 Range/Units 06:59 Creatine Kinase 391 H (55-170) U/L Amylase 172 H (30-110) U/L Lipase 746 H (23-300) U/L Microbiology - Last 24 Hours (Table) 01/27/20 10:57 Urine Culture - Preliminary Urine,Voided CT scan - abdomen: report reviewed (Computed tomography scan of the abdomen with findings of uncomplicated diverticulitis) Assessment and Plan (1) Diverticulitis Narrative/Plan: 34-year-old male presenting to the hospital with complaints of persistent abdominal pain. Patient had computed tomography scan significant for uncomplicated sigmoid diverticulitis. Currently reporting some improvement in symptoms on antibiotic therapy. He has had colonoscopic evaluation approximately 7 years ago significant polypectomy. Patient did have mild elevation in amylase and lipase, however no typical abdominal pain consistent with pancreatitis or CT findings to support pancreatitis. Current Visit: Yes Status: Acute Code(s): K57.92 - DVTRCLI OF INTEST, PART UNSP, W/O PERF OR ABSCESS W/O BLEED SNOMED Code(s): 512576287 (2) Abdominal pain Current Visit: Yes Status: Acute Code(s): R10.9 - UNSPECIFIED ABDOMINAL PAIN SNOMED Code(s): 72147235 Plan: Supportive care Diet increase to full liquids Advance to low fiber, low residual for 14 days and then high-fiber recommended Continue broad-spectrum antibiotic therapy Continue IV hydration Would recommend outpatient colonoscopy in 4-6 weeks for further evaluation Thank you for allowing us to participate in the care of the patient
--- NOTE | 2020-01-29 12:14 | P.PN ---
Subjective Progress Note Date: 01/29/20 Principal diagnosis: Pain This morning patient wished to try regular food to see how he does, when he ate a normal breakfast he started having severe pain in his stomach. Objective - Vital Signs Vital signs: Vital Signs Temp 97.6 F 01/29/20 07:00 Pulse 74 01/29/20 07:00 Resp 17 01/29/20 07:00 BP 107/69 01/29/20 07:00 Pulse Ox 95 01/29/20 07:00 Intake & Output 01/28/20 01/29/20 01/29/20 18:59 06:59 18:59 Intake Total 800 Balance 800 Intake: Intake, IV Titration 800 Amount Sodium Chloride 0.9% 1, 800 000 ml @ 100 mls/hr IV . Q10H [facility] Rx#:[id number] Other: Voiding Method Toilet # Voids 2 2 - Exam Constitutional: No acute distress, conversant, pleasant Eyes:Anicteric sclerae, moist conjunctiva, no lid-lag, PERRLA, ENMT: Oropharynx clear, no erythema, exudates Neck: Supple, FROM, no masses, or JVD, No carotid bruits, No thyromegaly Lungs: Clear to auscultation, Clear to percussion, Normal respiratory effort, no accessory muscle use Cardiovascular: Heart regular in rate and rhythm, No murmurs, gallops, or rubs, No peripheral edema Abdominal: Soft, tender especially in the left lower quadrant, no guarding, rebound or rigidity, Normoactive bowel sounds, No hepatomegaly, No splenomegaly, No palpable mass Skin: Normal temperature, tone, texture, turgor, no induration, No subcutaneous nodules, No rash, lesions, No ulcers Extremities: No digital cyanosis, No clubbing, Pedal pulses intact and symmetrical, Radial pulses intact and symmetrical, No calf tenderness Psychiatric: Alert and oriented to person, place and time, appropriate affect, intact judgement Neuro: Muscles Strength 5/5 in all 4 extremities, Sensation to light touch grossly present throughout, Cranial nerves II-XII grossly intact, no focal sensory deficits - Labs CBC & Chem 7: 01/29/20 08:23 01/29/20 08:23 Labs: Microbiology - Last 24 Hours (Table) 01/27/20 10:57 Urine Culture - Final Urine,Voided 01/27/20 13:45 Blood Culture - Preliminary Blood No Growth after 24 hours Assessment and Plan Plan: Sepsis related to acute diverticulitis Acute pancreatitis Severe anxiety Nausea and vomiting History of severe rhabdomyolysis Continue Flagyl and levofloxacin. Tylenol as needed for fever and chills. Add reglan, continue Zofran Xanax for anxiety Protonix IV Continue normal saline at 100 mL per hour. Blood cultures negative. Seen by GI will need colonoscopy as an outpatient after discharge..
[2020-01-29] MEDS: DICYCLOMINE 20 MG TAB PO SCH ×3 (15:58→22:16)
[2020-01-29] MEDS: SODIUM CHLORIDE 0.9% 1,000 ML IV SCH (17:54)
[2020-01-29] MEDS: LEVOFLOXACIN 750MG-D5W PMX 750 MG in DEXTROSE/WATER 1 150ML.BAG IVPB SCH (17:54)
--- NOTE | 2020-01-29 18:36 | P.PN ---
Subjective Progress Note Date: 01/29/20 Principal diagnosis: Diverticulitis Patient seen sitting in bed. He did have some nausea and vomiting when he tried to advance diet today. Still having some abdominal pain. Objective - Vital Signs Vital signs: Vital Signs Temp 97.6 F 01/29/20 07:00 Pulse 74 01/29/20 07:00 Resp 17 01/29/20 07:00 BP 107/69 01/29/20 07:00 Pulse Ox 95 01/29/20 07:00 Intake & Output 01/28/20 01/29/20 01/29/20 18:59 06:59 18:59 Intake Total 800 Balance 800 Intake: Intake, IV Titration 800 Amount Sodium Chloride 0.9% 1, 800 000 ml @ 100 mls/hr IV . Q10H [facility] Rx#:[id number] Other: Voiding Method Toilet # Voids 2 2 - Exam On physical examination, patient appears comfortable in no apparent distress. HEAD: Normocephalic, atraumatic. EYES: No scleral icterus. No conjunctival injection. MOUTH: No lesions, tongue midline. NECK: Trachea midline, no gross abnormalities. ABDOMEN: Soft, tender to palpation. Bowel sounds are positive. No organomegaly. No guarding or rigidity. EXTREMITIES: No pedal edema. SKIN: No rashes, no jaundice. NEUROLOGIC: Alert and oriented x3. No focal deficits. - Labs CBC & Chem 7: 01/29/20 08:23 01/29/20 08:23 Labs: Microbiology - Last 24 Hours (Table) 01/27/20 10:57 Urine Culture - Final Urine,Voided 01/27/20 13:45 Blood Culture - Preliminary Blood No Growth after 24 hours Assessment and Plan (1) Diverticulitis Narrative/Plan: 34-year-old male presenting to the hospital with complaints of persistent abdominal pain. Patient had computed tomography scan significant for uncomplicated sigmoid diverticulitis. Currently reporting some improvement in symptoms on antibiotic therapy. He has had colonoscopic evaluation approximately 7 years ago significant polypectomy. Patient did have mild elevation in amylase and lipase, however no typical abdominal pain consistent with pancreatitis or CT findings to support pancreatitis. Current Visit: Yes Status: Acute Code(s): K57.92 - DVTRCLI OF INTEST, PART UNSP, W/O PERF OR ABSCESS W/O BLEED SNOMED Code(s): 656559646 (2) Abdominal pain Current Visit: Yes Status: Acute Code(s): R10.9 - UNSPECIFIED ABDOMINAL PAIN SNOMED Code(s): 48155534 Plan: Supportive care Diet change back to clear liquids as patient had increased pain with advance diet Bentyl added as needed for abdominal pain Advance to low fiber, low residual when symptoms improved for 14 days and then high-fiber recommended Continue broad-spectrum antibiotic therapy Continue IV hydration Would recommend outpatient colonoscopy in 4-6 weeks for further evaluation Thank you for allowing us to participate in the care of the patient
[2020-01-29] MEDS: MELATONIN 5 MG TABLET PO SCH (20:43)
[2020-01-30] MEDS: METOCLOPRAMIDE 5 MG/ML 2 ML VIAL IVP SCH (05:02)
[2020-01-30] MEDS: HYDROmorphone 1 MG/ML 1 ML SYRINGE IV PRN ×2 (05:06→09:53)
[2020-01-30] MEDS: ALPRAZolam 1 MG TAB PO PRN (05:47)
[2020-01-30] MEDS: MAG HYDROX/AL HYDROX/SIMETH 30 ML CUP PO PRN (05:47)
[2020-01-30] MEDS: metroNIDAZOLE-NS PMX 500 MG in SALINE 1 100ML.BAG IVPB SCH (07:30)
[2020-01-30] MEDS: PANTOPRAZOLE 40 MG/10 ML VIAL IV SCH (07:30)
[2020-01-30] MEDS: DICYCLOMINE 20 MG TAB PO SCH (07:30)
[2020-01-30 08:12] VITALS: BP 111/75; PULSE 68; RESP 16; TEMP 97.8
--- NOTE | 2020-01-30 13:46 | P.DS ---
Providers Date of admission: 01/27/20 12:58 Expected date of discharge: 01/30/20 Attending physician: Obed Rodriguez MD Consults: 01/27/20 17:13 Consult Physician Routine Consulting Provider: Christophe Valencia Consult Reason/Comments: diverticulitis pancreatitis Do you want consulting provider notified?: Yes Primary care physician: Stated None Hospital Course: 34-year-old male with PMH of rhabdomyolysis presents the ED for abdominal pain. Pain was located in the epigastric area, was 9 out of 10 in severity, sharp and stabbing. Pain did radiate to the right side and towards the back. Patient reports discomfort in his testicles as well. Patient also had rectal urgency and diarrhea with mucus. He does not drink alcohol or smoke cigarettes. No fevers or chills. No chest pain or shortness of breath. No recent illness. In the ED, his vital signs are stable except for pulse of 101. CBC showed leukocytosis of 14.5. INR was 1. CMP showed a bicarbonate of 21, glucose 100, calcium 10.3. Amylase was 185. Lipase was 916. Coronavirus testing was negative. Urinalysis was relatively benign. CT of the abdomen and pelvis showed acute uncomplicated sigmoid diverticulitis. Patient was admitted, he was started on IV antibiotics with Levaquin and Flagyl. He was made nothing by mouth, was given IV fluids as well. He was seen by GI who agreed with supportive care and with antibiotics treatment. Patient gradually improved and eventually his diet was advanced to regular which he tolerated well. GI recommended outpatient follow-up in 4-6 weeks for possible colonoscopy. Today patient is feeling well, tolerating diet. He will be discharged home in stable condition. Time for discharge 35 minutes. Patient Condition at Discharge: Stable Plan - Discharge Summary Discharge Rx Participant: Yes New Discharge Prescriptions: New metroNIDAZOLE [Flagyl] 500 mg PO TID 5 Days #15 tab Levofloxacin [Levaquin] 750 mg PO DAILY 5 Days #5 tab Calcium Carbonate [Tums] 500 mg PO QID PRN chew PRN Reason: Heartburn Acetaminophen Tab [Tylenol] 650 mg PO Q6HR PRN tab PRN Reason: Mild Pain Or Fever > 100.5 Discharge Medication List Acetaminophen Tab [Tylenol] 650 mg PO Q6HR PRN tab 01/30/20 [Rx] Calcium Carbonate [Tums] 500 mg PO QID PRN chew 01/30/20 [Rx] Levofloxacin [Levaquin] 750 mg PO DAILY 5 Days #5 tab 01/30/20 [Rx] metroNIDAZOLE [Flagyl] 500 mg PO TID 5 Days #15 tab 01/30/20 [Rx] Follow up Appointment(s)/Referral(s): Milka Dove MD [STAFF PHYSICIAN] - 1 Week Christophe Valencia MD [STAFF PHYSICIAN] - 2 Weeks (patient want to make appointment) Patient Instructions/Handouts: Diverticulitis (DC)
--- NOTE | 2020-01-30 14:21 | PN ---
PROGRESS NOTE DATE OF SERVICE: 01/30/2020 Patient is a 34-year-old pleasant white male admitted to the hospital with acute sigmoid diverticulitis. He has been on Levaquin and Flagyl. Day #3 he is doing much better. Abdominal pain has improved. He still has some vague discomfort in the left lower quadrant area, but much better. No nausea, no vomiting. No rectal bleeding or melena. He had one loose bowel movement today with some mucous noted. No fever, chills, or night sweats. PHYSICAL EXAMINATION: Appears comfortable, in no apparent distress. Vital signs are stable. Blood pressure 101/75, pulse rate 58, temperature 97.9. HEENT: Examination unremarkable, conjunctivae are pink, sclerae nonicteric, oral cavity no lesions. NECK: No JVD or lymph node enlargement. CHEST: Clear to auscultation. HEART: Regular rate and rhythm. ABDOMEN: Soft. There was very minimal tenderness in the left lower quadrant and suprapubic area. The rest of the abdomen was benign. Bowel sounds are positive. No organomegaly. EXTREMITIES: No pedal edema. SKIN: No rashes. NEURO: He is alert and oriented x3. No focal deficits. LABS: From today WBC 5.7, hemoglobin 15.2, platelets normal. Basic metabolic panel is within normal limits. Amylase and lipase are normal. IMPRESSION: 1. Acute sigmoid diverticulitis, presently on Flagyl and Levaquin, doing extremely well. Abdominal pain has significantly improved. Leukocytosis completely resolved. Bowel movements have normalized. 2. Mild elevation of amylase and lipase consistent with acute pancreatitis, this is also resolving. RECOMMENDATIONS: 1. Advance to a low-fiber diet. 2. Continue with broad-spectrum antibiotics. 3. He can be discharged home today or tomorrow with outpatient followup with Dr. Carvalho in 2 weeks and will consider a colonoscopy in 6-8 weeks from now. The plan was discussed with the patient. He is agreeable to it. Thank you for this consultation. MMODL / IJN: [id number] /
== END 2020-01-30 13:39 | disposition home or self-care (01) | DRG 871 ==
LOC: EC 10:01 → 4SSUR 12:58
PROVIDERS: ADMIT Family Medicine; ATTEND Family Medicine
DX: A41.9 Sepsis, unspecified organism (principal); K85.90 Acute pancreatitis without necrosis or infection, unspecified; K57.32 Diverticulitis of large intestine without perforation or abscess without bleeding; F32.9 Major depressive disorder, single episode, unspecified; F41.9 Anxiety disorder, unspecified; R30.0 Dysuria; R11.2 Nausea with vomiting, unspecified; Z11.59 Encounter for screening for other viral diseases
CPT/HCPCS: 36415; 74018; 74177; 80053; 81001; 82150; 82550; 83605; 83690; 85025; 85610; 85730; 87040; 87086; 87635; 93005; 96361; 96374; 96375; 96376; 99285

== ENCOUNTER 2020-02-02 12:51 | Emergency (ER) | payer OTHER ==
[2020-02-02] MEDS ORDERED: SODIUM CHLORIDE 0.9% 1,000 ML IV STA (13:18)
[2020-02-02] MEDS ORDERED: KETOROLAC 30 MG/ML 1 ML VIAL IVP STA (13:24)
[2020-02-02] MEDS ORDERED: ONDANSETRON 4 MG/2 ML VIAL IVP STA (13:24)
[2020-02-02 13:30] LABS: Basophils # (A) 0.1 k/uL (0-0.2); Basophils % (A) 1 %; Eosinophils # (A) 0.2 k/uL (0-0.7); Eosinophils % (A) 2 %; HCT 50.1 % (39.0-53.0); HGB 16.9 gm/dL (13.0-17.5); Lymphocytes # (A) 2.2 k/uL (1.0-4.8); Lymphocytes % (A) 27 %; MCH 32.2 pg (25.0-35.0); MCHC 33.7 g/dL (31.0-37.0); MCV 95.3 fL (80.0-100.0); Mean Platelet Volume 8.5; Monocytes # (A) 0.4 k/uL (0-1.0); Monocytes % (A) 5 %; Neutrophils # (A) 5.1 k/uL (1.3-7.7); Neutrophils % (A) 63 %; Platelet Count 218 k/uL (150-450); RBC 5.25 m/uL (4.30-5.90); RDW 12.7 % (11.5-15.5); WBC 8.1 k/uL (3.8-10.6)
[2020-02-02 13:40] LABS: Partial Thromboplastin Time 24.8 sec (22.0-30.0); Prothrombin Time 10.7 sec (9.0-12.0)
[2020-02-02 13:45] LABS: Appearance,Urine Clear (Clear); Bilirubin,Urine Negative (Negative); Blood,Urine Negative (Negative); Color,Urine Light Yellow; Glucose,Urine (UA) Negative (Negative); Ketones,Urine Negative (Negative); Leukocyte Esterase,Urine Negative (Negative); Nitrite,Urine Negative (Negative); Protein,Urine Negative (Negative); Specific Gravity,Urine 1.009 (1.001-1.035); Urobilinogen,Urine <2.0 mg/dL (<2.0)
[2020-02-02 13:47] LABS: ALT 47 U/L (4-49); AST 51 U/L (17-59); African American GFR (CKD) >90 (>60 ml/min/1.73 sqM); Albumin 4.9 g/dL (3.5-5.0); Alkaline Phosphatase 53 U/L (38-126); Amylase 88 U/L (30-110); Anion Gap 10 mmol/L; Blood Urea Nitrogen 13 mg/dL (9-20); Calcium 9.9 mg/dL (8.4-10.2); Carbon Dioxide 25 mmol/L (22-30); Chloride 104 mmol/L (98-107); Glucose 100 mg/dL (74-99); Non-African American GFR(CKD) 89 (>60 ml/min/1.73 sqM); Potassium 4.3 mmol/L (3.5-5.1); Sodium 139 mmol/L (137-145); Total Bilirubin 0.4 mg/dL (0.2-1.3); Total Protein 7.9 g/dL (6.3-8.2)
--- NOTE | 2020-02-02 13:49 | ED ---
Abdominal Pain HPI - General Source: patient Mode of arrival: ambulatory Limitations: no limitations <Katharina Shay - Last Filed: 02/02/20 19:44> <mUm Craven - Last Filed: 02/03/20 02:08> - General Chief Complaint: Abdominal Pain Stated Complaint: nausea/side pain Time Seen by Provider: 02/02/20 13:17 - History of Present Illness Initial Comments: Patient is a 34-year-old male presenting to the emergency Department with complaints of abdominal pain that has been increasing over the past few days. Patient was recently discharged from the hospital 3 days ago for acute pancreatitis and diverticulitis. Patient is currently on Levaquin and Flagyl. He is supposed to follow up with GI in 2 weeks. He states he was doing well and has been following a very strict liquid diet and low fiber diet however his pain has been increasing over the past few days. He describes the pain as mostly located on the left side of his abdomen with also some mild pains in the right side. He also continues to be nauseous. Of note, patient does admit to history of anxiety when it comes to hospitals. He states he thinks this may be contributing to his abdominal pain, however he is still concerned that something else might be going on. He states his urine has been very, very dark. He denies any previous abdominal surgeries. He denies any fever, chills, diarrhea. He denies any chest pain, shortness of breath. He has no other complaints at this time. Upon arrival to the ER, his vitals are stable. (Katharina Shay) - Related Data Previous Rx's Medication Instructions Recorded Acetaminophen Tab [Tylenol] 650 mg PO Q6HR PRN tab 01/30/20 Calcium Carbonate [Tums] 500 mg PO QID PRN chew 01/30/20 Levofloxacin [Levaquin] 750 mg PO DAILY 5 Days #5 tab 01/30/20 metroNIDAZOLE [Flagyl] 500 mg PO TID 5 Days #15 tab 01/30/20 Ketorolac [Toradol] 10 mg PO Q8HR #10 tab 02/02/20 Ondansetron Odt [Zofran Odt] 4 mg PO Q8HR PRN #10 tab 02/02/20 Allergies Allergy/AdvReac Type Severity Reaction Status Date / Time No Known Allergies Allergy Verified 02/02/20 13:04 Review of Systems ROS Other: All systems not noted in ROS Statement are negative. <Katharina Shay - Last Filed: 02/02/20 19:44> ROS Other: All systems not noted in ROS Statement are negative. <Umm Craven - Last Filed: 02/03/20 02:08> ROS Statement: Those systems with pertinent positive or pertinent negative responses have been documented in the HPI. 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 History of Any Multi-Drug Resistant Organisms: None Reported Past Surgical History: Orthopedic Surgery Past Anesthesia/Blood Transfusion Reactions: Previous Problems w/ Anesthesia Additional Past Anesthesia/Blood Transfusion Reaction / Comment(s): Patient wak es up during procedures Past Psychological History: Bipolar, Depression Smoking Status: Never smoker Past Alcohol Use History: Occasional Past Drug Use History: Marijuana - Past Family History Mother Family Medical History: No Reported History <Katharina Shay - Last Filed: 02/02/20 19:44> General Exam Limitations: no limitations <Katharina Shay - Last Filed: 02/02/20 19:44> - General Exam Comments Initial Comments: GENERAL: Well-appearing, well-nourished and in no acute distress. HEAD: Atraumatic, normocephalic. EYES: Pupils equal round and reactive to light, extraocular movements intact, sclera anicteric, conjunctiva are normal. ENT: TMs normal, nares patent, oropharynx clear without exudates. Moist mucous membranes. NECK: Normal range of motion, supple without lymphadenopathy or JVD. LUNGS: Breath sounds clear to auscultation bilaterally and equal. No wheezes rales or rhonchi. HEART: Regular rate and rhythm without murmurs, rubs or gallops. ABDOMEN: Tender to palpation of the left upper and lower quadrant, umbilicated area as well. Soft, normoactive bowel sounds. No rebound. No masses appreciated. : Deferred EXTREMITIES: Normal range of motion, no pitting or edema. No clubbing or cyanosis. NEUROLOGICAL: Cranial nerves II through XII grossly intact. Normal speech, normal gait. PSYCH: Normal mood, normal affect. SKIN: Warm, Dry, normal turgor, no rashes or lesions noted. (Katharina Shay) Course Vital Signs 02/02/20 02/02/20 02/02/20 13:02 14:12 14:55 Temperature 98.6 F 98.0 F Pulse Rate 82 76 Respiratory 16 19 Rate Blood Pressure 129/85 124/78 O2 Sat by Pulse 98 100 Oximetry Medical Decision Making - Lab Data Result diagrams: 02/02/20 13:05 02/02/20 13:05 <Katharina Shay - Last Filed: 02/02/20 19:44> - Lab Data Result diagrams: 02/02/20 13:05 02/02/20 13:05 <Umm Craven - Last Filed: 02/03/20 02:08> - Medical Decision Making Patient 34-year-old male presenting with abdominal pain is increasing over the past few days. Patient was discharged from this hospital 3 days ago for acute pancreatitis and diverticulitis. He is currently on Flagyl and Levaquin. His vitals are stable. Patient continues to have generalized abdominal discomfort and nausea. Patient's lab work is unremarkable, no acute process, lipase is 179. Urine is normal. He was given fluids, Zofran, Toradol. He reports improvement in his symptoms. I discussed with patient that his workup today is normal and that he needs to follow-up with GI as outpatient. Patient is requesting something for his anxiety. He states he used to be on Xanax many years ago. He states he recently lost his father in an emergency Department in a freak accident and has since had increased anxiety around hospital stays. I did give patient a dose of Xanax before discharge. His friend is picking him up from the ER. Patient is in agreement with this plan of care. He will follow up with GI. Return parameters were discussed with the patient and he verbalized understanding. Case discussed with Dr. Craven. (Katharina Shay) I was available for consultation in the emergency department. The history and physical exam were done by the midlevel provider. I was consulted for this patients care. I reviewed the case with the midlevel provider and based on their presentation of the patient, I agree with the assessment, medical decision making and plan of care as documented. Chart was dictated using [employer] dictation software. Attempts were made to correct any dictation errors however some typographical errors may persist. Patient was seen during a national state of emergency due to the Covid-19 pandemic. (Umm Craven) - Lab Data Lab Results 02/02/20 02/02/20 02/02/20 Range/Units 13:05 13:05 13:05 WBC 8.1 (3.8-10.6) k/uL RBC 5.25 (4.30-5.90) m/uL Hgb 16.9 (13.0-17.5) gm/dL Hct 50.1 (39.0-53.0) % MCV 95.3 (80.0-100.0) fL MCH 32.2 (25.0-35.0) pg MCHC 33.7 (31.0-37.0) g/dL RDW 12.7 (11.5-15.5) % Plt Count 218 (150-450) k/uL Neutrophils % 63 % Lymphocytes % 27 % Monocytes % 5 % Eosinophils % 2 % Basophils % 1 % Neutrophils # 5.1 (1.3-7.7) k/uL Lymphocytes # 2.2 (1.0-4.8) k/uL Monocytes # 0.4 (0-1.0) k/uL Eosinophils # 0.2 (0-0.7) k/uL Basophils # 0.1 (0-0.2) k/uL PT 10.7 (9.0-12.0) sec INR 1.0 (<1.2) APTT 24.8 (22.0-30.0) sec Sodium 139 (137-145) mmol/L Potassium 4.3 (3.5-5.1) mmol/L Chloride 104 (98-107) mmol/L Carbon Dioxide 25 (22-30) mmol/L Anion Gap 10 mmol/L BUN 13 (9-20) mg/dL Creatinine 1.09 (0.66-1.25) mg/dL Est GFR (CKD-EPI)AfAm >90 (>60 ml/min/1.73 sqM) Est GFR (CKD-EPI)NonAf 89 (>60 ml/min/1.73 sqM) Glucose 100 H (74-99) mg/dL Plasma Lactic Acid Ross (0.7-2.0) mmol/L Calcium 9.9 (8.4-10.2) mg/dL Total Bilirubin 0.4 (0.2-1.3) mg/dL AST 51 (17-59) U/L ALT 47 (4-49) U/L Alkaline Phosphatase 53 (38-126) U/L Total Protein 7.9 (6.3-8.2) g/dL Albumin 4.9 (3.5-5.0) g/dL Amylase 88 (30-110) U/L Lipase 179 (23-300) U/L Urine Color Urine Appearance (Clear) Urine pH (5.0-8.0) Ur Specific [place] (1.001-1.035) Urine Protein (Negative) Urine Glucose (UA) (Negative) Urine Ketones (Negative) Urine Blood (Negative) Urine Nitrite (Negative) Urine Bilirubin (Negative) Urine Urobilinogen (<2.0) mg/dL Ur Leukocyte Esterase (Negative) 02/02/20 02/02/20 Range/Units 13:05 13:30 WBC (3.8-10.6) k/uL RBC (4.30-5.90) m/uL Hgb (13.0-17.5) gm/dL Hct (39.0-53.0) % MCV (80.0-100.0) fL MCH (25.0-35.0) pg MCHC (31.0-37.0) g/dL RDW (11.5-15.5) % Plt Count (150-450) k/uL Neutrophils % % Lymphocytes % % Monocytes % % Eosinophils % % Basophils % % Neutrophils # (1.3-7.7) k/uL Lymphocytes # (1.0-4.8) k/uL Monocytes # (0-1.0) k/uL Eosinophils # (0-0.7) k/uL Basophils # (0-0.2) k/uL PT (9.0-12.0) sec INR (<1.2) APTT (22.0-30.0) sec Sodium (137-145) mmol/L Potassium (3.5-5.1) mmol/L Chloride (98-107) mmol/L Carbon Dioxide (22-30) mmol/L Anion Gap mmol/L BUN (9-20) mg/dL Creatinine (0.66-1.25) mg/dL Est GFR (CKD-EPI)AfAm (>60 ml/min/1.73 sqM) Est GFR (CKD-EPI)NonAf (>60 ml/min/1.73 sqM) Glucose (74-99) mg/dL Plasma Lactic Acid Ross 0.8 (0.7-2.0) mmol/L Calcium (8.4-10.2) mg/dL Total Bilirubin (0.2-1.3) mg/dL AST (17-59) U/L ALT (4-49) U/L Alkaline Phosphatase (38-126) U/L Total Protein (6.3-8.2) g/dL Albumin (3.5-5.0) g/dL Amylase (30-110) U/L Lipase (23-300) U/L Urine Color Light Yellow Urine Appearance Clear (Clear) Urine pH 7.0 (5.0-8.0) Ur Specific [place] 1.009 (1.001-1.035) Urine Protein Negative (Negative) Urine Glucose (UA) Negative (Negative) Urine Ketones Negative (Negative) Urine Blood Negative (Negative) Urine Nitrite Negative (Negative) Urine Bilirubin Negative (Negative) Urine Urobilinogen <2.0 (<2.0) mg/dL Ur Leukocyte Esterase Negative (Negative) Disposition Is patient prescribed a controlled substance at d/c from ED?: No <Katharina Shay - Last Filed: 02/02/20 19:44> <Umm Craven - Last Filed: 02/03/20 02:08> Clinical Impression: Abdominal pain, Nausea, Anxiety Disposition: HOME SELF-CARE Condition: Stable Instructions (If sedation given, give patient instructions): Abdominal Pain (ED) Additional Instructions: Please return to the Emergency Department if symptoms worsen or any other concerns. Follow up with GI doctor as discussed. May take Toradol and/or Zofran as needed for continued symptoms. May take Benadryl at night for anxiety. Prescriptions: Ketorolac [Toradol] 10 mg PO Q8HR #10 tab Ondansetron Odt [Zofran Odt] 4 mg PO Q8HR PRN #10 tab PRN Reason: Nausea Referrals: None,Stated [Primary Care Provider] - 1-2 days
[2020-02-02 14:13] VITALS: BP 124/78; PULSE 76; RESP 19
[2020-02-02] MEDS ORDERED: ALPRAZolam 1 MG TAB PO STA (14:30)
[2020-02-02 15:00] VITALS: TEMP 98
== END 2020-02-02 14:55 | disposition home or self-care (01) ==
LOC: EC 12:51
DX: F41.9 Anxiety disorder, unspecified (principal); R10.84 Generalized abdominal pain; R11.0 Nausea; R10.812 Left upper quadrant abdominal tenderness; R10.814 Left lower quadrant abdominal tenderness
CPT/HCPCS: 99284; 96374; 96375; 96361; 36415; 80053; 82150; 83605; 83690; 85025; 85610; 85730; 81003; J2405; J1885

== ENCOUNTER 2020-08-11 10:20 | Emergency (ER) | payer OTHER ==
[2020-08-11 10:46] VITALS: RESP 18
[2020-08-11] MEDS ORDERED: HYDROcodone/APAP 5-325MG 1 EACH TAB PO STA (10:59)
--- NOTE | 2020-08-11 11:04 | ED ---
Lower Extremity Injury HPI - General Chief Complaint: Extremity Injury, Lower Stated Complaint: rt leg injury Time Seen by Provider: 08/11/20 10:50 Source: patient, RN notes reviewed Mode of arrival: wheelchair Limitations: no limitations - History of Present Illness Initial Comments: This a 35-year-old male presents emergency Department chief complaint right leg pain. Patient states that he was working outside states his brother threw up large metal shovel that struck on the back of her leg. Patient states that he had pain initially states it has progressively worsened throughout the night states it hurts to ambulate. Denies any bruising. Denies any sick and swelling. Patient has been current complaints of paresthesias. Patient states that he's had no prior issues with his right leg. - Related Data Previous Rx's Medication Instructions Recorded Ibuprofen [Motrin] 600 mg PO Q8HR PRN #20 tab 08/11/20 Allergies Allergy/AdvReac Type Severity Reaction Status Date / Time No Known Allergies Allergy Verified 08/11/20 10:46 Review of Systems ROS Statement: Those systems with pertinent positive or pertinent negative responses have been documented in the HPI. ROS Other: All systems not noted in ROS Statement are negative. 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 History of Any Multi-Drug Resistant Organisms: None Reported Past Surgical History: Orthopedic Surgery Additional Past Surgical History / Comment(s): right hand fracture repair Past Anesthesia/Blood Transfusion Reactions: Previous Problems w/ Anesthesia Additional Past Anesthesia/Blood Transfusion Reaction / Comment(s): Patient wakes up during procedures Past Psychological History: Bipolar, Depression Smoking Status: Former smoker Past Alcohol Use History: Occasional Past Drug Use History: Marijuana - Past Family History Mother Family Medical History: No Reported History General Exam Limitations: no limitations General appearance: alert, in no apparent distress Head exam: Present: atraumatic, normocephalic, normal inspection Eye exam: Present: normal appearance, PERRL, EOMI. Absent: scleral icterus, conjunctival injection, periorbital swelling ENT exam: Present: normal exam, normal oropharynx, mucous membranes moist Neck exam: Present: normal inspection, full ROM. Absent: tenderness, meningismus, lymphadenopathy Respiratory exam: Present: normal lung sounds bilaterally. Absent: respiratory distress, wheezes, rales, rhonchi, stridor Cardiovascular Exam: Present: regular rate, normal rhythm, normal heart sounds. Absent: systolic murmur, diastolic murmur, rubs, gallop, clicks Extremities exam: Present: other (Tenderness to right posterior leg, no ecchymosis no swelling neurovascular intact, patient has full range of motion strength equal bilaterally patient reports pain with range of motion) Neurological exam: Present: alert, oriented X3, reflexes normal. Absent: motor sensory deficit Course Vital Signs 08/11/20 10:43 Temperature 98.6 F Pulse Rate 95 Respiratory 18 Rate Blood Pressure 129/83 O2 Sat by Pulse 99 Oximetry Medical Decision Making - Medical Decision Making X-rays negative for acute fracture ultrasound was performed this patient was concern for possible DVT. There is no evidence of acute DVT. Patient is a left leg contusion. Return parameters were discussed. Disposition Clinical Impression: Contusion of right leg Disposition: HOME SELF-CARE Condition: Stable Instructions (If sedation given, give patient instructions): Contusion in [place]vin lts (ED) Additional Instructions: Please return to the Emergency Department if symptoms worsen or any other concerns. Prescriptions: Ibuprofen [Motrin] 600 mg PO Q8HR PRN #20 tab PRN Reason: Pain Is patient prescribed a controlled substance at d/c from ED?: No Referrals: None,Stated [Primary Care Provider] - 1-2 days Lori Plasencia DO [Doctor of Osteopathic Medicine] - 1-2 days Time of Disposition: 12:44
--- NOTE | 2020-08-11 11:20 | XR ---
EXAMINATION TYPE: XR tibia fibula RT DATE OF EXAM: 08/11/2020 CLINICAL HISTORY: pain TECHNIQUE: AP and lateral images of the right tibia and fibula are obtained. COMPARISON: None. FINDINGS: There is no acute fracture/dislocation evident. The joint spaces appear within normal marcum its. The overlying soft tissue appears unremarkable. IMPRESSION: There is no acute fracture or dislocation seen. ICD 10 NO FRACTURE, INITIAL EVALUATION
[2020-08-11] MEDS ORDERED: KETOROLAC 15 MG/ML 1 ML VIAL IM STA (12:23)
[2020-08-11] MEDS ORDERED: CYCLOBENZAPRINE 10 MG TAB PO STA (12:23)
--- NOTE | 2020-08-11 12:41 | US ---
EXAMINATION TYPE: US venous doppler duplex LE RT DATE OF EXAM: 08/11/2020 12:26 PM COMPARISON: NONE CLINICAL HISTORY: pain. Right leg pain following trauma to back of right leg 1 day ago. SIDE PERFORMED: Right TECHNIQUE: The lower extremity deep venous system is examined utilizing real time linear array sonog richard with graded compression, doppler sonography and color-flow sonography. VESSELS IMAGED: Common Femoral Vein Deep Femoral Vein Greater Saphenous Vein * Femoral Vein Popliteal Vein Small Saphenous Vein * Proximal Calf Veins (* superficial vessels) Right Leg: No convincing evidence for acute DVT IMPRESSION: No convincing evidence for DVT of the right lower extremity.
[2020-08-11] MEDS ORDERED: ACET/COD 300 MG/30 MG STARTER PACK 6 TAB BTL PO STA (12:45)
[2020-08-11 13:11] VITALS: BP 142/96; PULSE 78; TEMP 98.1
== END 2020-08-11 13:10 | disposition home or self-care (01) ==
LOC: EC 10:20
DX: S80.11XA Contusion of right lower leg, initial encounter (principal); Z87.891 Personal history of nicotine dependence; W20.8XXA Other cause of strike by thrown, projected or falling object, initial encounter
CPT/HCPCS: 73590; 93971; 99284; 96372; J1885

== ENCOUNTER 2020-10-07 17:55 | Emergency (ER) | payer OTHER ==
[2020-10-07 18:09] VITALS: RESP 16
[2020-10-07 18:35] LABS: Appearance,Urine Clear (Clear); Bilirubin,Urine Negative (Negative); Blood,Urine Negative (Negative); Color,Urine Yellow; Glucose,Urine (UA) Negative (Negative); Ketones,Urine Negative (Negative); Leukocyte Esterase,Urine Negative (Negative); Nitrite,Urine Negative (Negative); PH, Urine 7.5 (5.0-8.0); Protein,Urine Negative (Negative); Specific Gravity,Urine 1.014 (1.001-1.035); Urobilinogen,Urine <2.0 mg/dL (<2.0)
--- NOTE | 2020-10-07 18:47 | XR ---
EXAMINATION TYPE: XR chest 2V DATE OF EXAM: 10/07/2020 COMPARISON: NONE HISTORY: Left rib pain. TECHNIQUE: Frontal and lateral views of the chest are obtained. FINDINGS: There is no focal air space opacity, pleural effusion, or pneumothorax seen. The cardiac silhouette size is within normal limits. The osseous structures are intact. IMPRESSION: No acute cardiopulmonary process.
--- NOTE | 2020-10-07 18:54 | XR ---
Result: History: Left rib pain. Comparison: None available. Technique: Four views of the left ribs. Findings: There is no definite displaced rib fracture. The visualized osseous structures are in anatomic align ment. Impression: No definite displaced rib fracture is seen.
--- NOTE | 2020-10-07 19:07 | ED ---
General Adult HPI - General Source: patient Mode of arrival: ambulatory Limitations: no limitations <Ervin Lu - Last Filed: 10/07/20 19:30> <Umm Robles - Last Filed: 10/09/20 22:47> - General Chief complaint: Abdominal Pain Stated complaint: Kidney Pain Time Seen by Provider: 10/07/20 18:06 - History of Present Illness Initial comments: 35-year-old male with a past medical history of right hand fracture, rhabdomyolysis, diverticulitis, pancreatitis presents to the emergency room for a chief complaint of left-sided low back pain. Patient states this started several days ago. States he has had a cough. He bent over to pick something up and coughed hard and felt a sudden pain. States he now feels pain when coughing in the area. States it hurts to press on his ribs in this area. Patient states he wonders if he has an infection in his kidney. He states he has been urinating cloudy urine even though he is thinking plenty of water. Patient denies abdominal pain. He denies fevers or chills.Patient has no other complaints at this time including shortness of breath, chest pain, abdominal pain, nausea or vomiting, headache, or visual changes. (Ervin Lu) - Related Data Previous Rx's Medication Instructions Recorded Ibuprofen [Motrin] 600 mg PO Q8HR PRN #20 tab 08/11/20 Allergies Allergy/AdvReac Type Severity Reaction Status Date / Time No Known Allergies Allergy Verified 10/07/20 18:09 Review of Systems ROS Other: All systems not noted in ROS Statement are negative. <Ervin Lu - Last Filed: 10/07/20 19:30> ROS Other: All systems not noted in ROS Statement are negative. <Umm Robles - Last Filed: 10/09/20 22:47> ROS Statement: Those systems with pertinent positive or pertinent negative responses have been documented in the HPI. 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 History of Any Multi-Drug Resistant Organisms: None Reported Past Surgical History: Orthopedic Surgery Additional Past Surgical History / Comment(s): right hand fracture repair Past Anesthesia/Blood Transfusion Reactions: Previous Problems w/ Anesthesia Additional Past Anesthesia/Blood Transfusion Reaction / Comment(s): Patient wakes up during procedures Past Psychological History: Bipolar, Depression Smoking Status: Former smoker Past Alcohol Use History: Occasional Past Drug Use History: Marijuana - Past Family History Mother Family Medical History: No Reported History <Ervin Lu Jose Luis - Last Filed: 10/07/20 19:30> General Exam Limitations: no limitations General appearance: alert Head exam: Present: atraumatic Eye exam: Present: normal appearance, PERRL, EOMI. Absent: scleral icterus, conjunctival injection ENT exam: Present: normal exam, mucous membranes moist Neck exam: Present: normal inspection, full ROM Respiratory exam: Present: normal lung sounds bilaterally. Absent: respiratory distress Cardiovascular Exam: Present: regular rate, normal rhythm, normal heart sounds GI/Abdominal exam: Present: soft, normal bowel sounds. Absent: distended, tenderness, guarding, rebound, rigid Back exam: Present: paraspinal tenderness (Patient has left sided posterior inferior rib tenderness around rib 10/11.). Absent: CVA tenderness (R), CVA tenderness (L), other (No ecchymosis or signs of trauma.) Neurological exam: Present: alert <AlyErvin P - Last Filed: 10/07/20 19:30> Course Vital Signs 10/07/20 10/07/20 18:07 19:35 Temperature 98.6 F 98.3 F Pulse Rate 97 82 Respiratory 16 16 Rate Blood Pressure 132/81 123/89 O2 Sat by Pulse 97 99 Oximetry Medical Decision Making <AlyErvin P - Last Filed: 10/07/20 19:30> <Umm Robles - Last Filed: 10/09/20 22:47> - Medical Decision Making HPI physical exam is documented. Symptoms started and patient was bent over and had a strong cough. States it was a sharp sudden pain. States that now it hurts every time he coughs or when he presses on the area. He was concerned about kidney infection therefore urinalysis was obtained. Urinalysis negative. No blood in the urine that would signify kidney stone. COVID neg. Chest x-ray shows no acute cardiopulmonary process. X-ray of the left ribs show no definite displaced rib fracture seen. At this time patient can be discharged home with a likely intercostal muscle strain or rib contusion. However recommend he follow up with his doctor and return here for any worsening symptoms or fevers. Patient does not want any pain medication. I discussed this case with attending Dr. robles who agrees with this assessment and treatment plan. (Ervin Lu) I was available for consultation in the emergency department. The history and physical exam were done by the midlevel provider. I was consulted for this patients care. I reviewed the case with the midlevel provider and based on t heir presentation of the patient, I agree with the assessment, medical decision making and plan of care as documented. Chart was dictated using [employer] dictation software. Attempts were made to corre ct any dictation errors however some typographical errors may persist. Patient was seen during a national state of emergency due to the Covid-19 pandemic. (Umm Robles) - Lab Data Lab Results 10/07/20 10/07/20 Range/Units 18:18 18:18 Urine Color Yellow Urine Appearance Clear (Clear) Urine pH 7.5 (5.0-8.0) Ur Specific [place] 1.014 (1.001-1.035) Urine Protein Negative (Negative) Urine Glucose (UA) Negative (Negative) Urine Ketones Negative (Negative) Urine Blood Negative (Negative) Urine Nitrite Negative (Negative) Urine Bilirubin Negative (Negative) Urine Urobilinogen <2.0 (<2.0) mg/dL Ur Leukocyte Esterase Negative (Negative) Coronavirus (PCR) Not Detected (Not Detectd) Disposition Is patient prescribed a controlled substance at d/c from ED?: No Time of Disposition: 19:27 <Ervin Lu - Last Filed: 10/07/20 19:30> <Umm Robles - Last Filed: 10/09/20 22:47> Clinical Impression: Back pain Disposition: HOME SELF-CARE Condition: Good Instructions (If sedation given, give patient instructions): Rib Contusion (ED) Additional Instructions: Please take Motrin and Tylenol for pain. Follow-up with your doctor in one to 2 days. If you develop any worsening symptoms return to the emergency room. Referrals: Lalito Espinoza MD [REFERRING] - 1-2 days
[2020-10-07 19:36] VITALS: BP 123/89; PULSE 82; TEMP 98.3
== END 2020-10-07 19:36 | disposition home or self-care (01) ==
LOC: EC 17:55
DX: M54.5 Low back pain (principal); R05 Cough; Z20.822 Contact with and (suspected) exposure to COVID-19; Z87.891 Personal history of nicotine dependence
CPT/HCPCS: 71046; 81003; 87635; 99284

== ENCOUNTER 2021-01-08 12:23 | Emergency (ER) | payer OTHER ==
[2021-01-08 12:29] VITALS: TEMP 98
[2021-01-08] MEDS ORDERED: ONDANSETRON 4 MG/2 ML VIAL IVP STA (12:58)
--- NOTE | 2021-01-08 13:26 | ED ---
General Adult HPI - General Chief complaint: Abdominal Pain Stated complaint: abd pain Time Seen by Provider: 01/08/21 12:25 Source: patient, RN notes reviewed, old records reviewed Mode of arrival: ambulatory Limitations: no limitations - History of Present Illness Initial comments: This is a 35-year-old male who presents emergency Department stating he has a past medical history significant for diverticulitis and pancreatitis. Patient comes in today complaining that he is having similar symptoms to when he had pancreatitis. Patient complains of epigastric pain and pain it radiates to the back he states is on both sides of his back. Patient states she has had some vomiting but not too much. Patient denies any diarrhea. Patient denies any c hest pain difficulty breathing shortness of breath. Patient denies any recent fever chills or cough. - Related Data Home Medications Medication Instructions Recorded Confirmed Dicyclomine [Bentyl] 10 mg PO QID PRN 01/08/21 01/08/21 Metoclopramide [Reglan] 10 mg PO QID PRN 01/08/21 01/08/21 Multivitamins, Thera [Multivitamin 1 tab PO DAILY 01/08/21 01/08/21 (formulary)] Pantoprazole Sodium [Protonix] 40 mg PO BID 01/08/21 01/08/21 Allergies Allergy/AdvReac Type Severity Reaction Status Date / Time droperidol Allergy Anaphylaxis Verified 01/08/21 13:45 Review of Systems ROS Statement: Those systems with pertinent positive or pertinent negative responses have been documented in the HPI. ROS Other: All systems not noted in ROS Statement are negative. 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, pancreatitis History of Any Multi-Drug Resistant Organisms: None Reported Past Surgical History: Orthopedic Surgery Additional Past Surgical History / Comment(s): right hand fracture repair Past Anesthesia/Blood Transfusion Reactions: Previous Problems w/ Anesthesia Additional Past Anesthesia/Blood Transfusion Reaction / Comment(s): Patient wakes up during procedures Past Psychological History: Bipolar, Depression Smoking Status: Former smoker Past Alcohol Use History: Occasional Past Drug Use History: Marijuana - Past Family History Mother Family Medical History: No Reported History General Exam - General Exam Comments Initial Comments: GENERAL: Patient is well-developed and well-nourished. Patient is nontoxic and well- hydrated and is in mild distress. ENT: Neck is soft and supple. No significant lymphadenopathy is noted. Oropharynx i s clear. Moist mucous membranes. Neck has full range of motion without eliciting any pain. EYES: The sclera were anicteric and conjunctiva were pink and moist. Extraocular movements were intact and pupils were equal round and reactive to light. Eyelids were unremarkable. PULMONARY: Unlabored respirations. Good breath sounds bilaterally. No audible rales rhonchi or wheezing was noted. CARDIOVASCULAR: There is a regular rate and rhythm without any murmurs gallops or rubs. ABDOMEN: Right upper quadrant and epigastric tenderness SKIN: Skin is clear with no lesions or rashes and otherwise unremarkable. NEUROLOGIC: Patient is alert and oriented x3. Cranial nerves II through XII are grossly intact. Motor and sensory are also intact. Normal speech, volume and content. Symmetrical smile. MUSCULOSKELETAL Normal extremities with adequate strength and full range of motion. LYMPHATICS: No significant lymphadenopathy is noted PSYCHIATRIC: Normal psychiatric evaluation. Limitations: no limitations Course Vital Signs 01/08/21 01/08/21 01/08/21 12:25 13:41 13:43 Temperature 98.0 F Pulse Rate 101 H 115 H 99 Respiratory 20 24 20 Rate Blood Pressure 151/78 139/84 O2 Sat by Pulse 98 96 96 Oximetry 01/08/21 14:16 Temperature Pulse Rate 96 Respiratory 18 Rate Blood Pressure O2 Sat by Pulse 100 Oximetry Medical Decision Making - Medical Decision Making EKG shows a normal sinus rhythm at 71 bpm MT interval 274 QRS is 80 QT interval 362 QTC is 393. Patient's EKG shows no ST segment elevation or depression CT shows hepatosplenomegaly however it was there in previous computed tomography scan. I went back to discuss the results with the patient and the patient had walked out with an IV in the arm and nursing is dealing with hitting him to come back to the emergency department to have an IV removed - Lab Data Result diagrams: 01/08/21 12:59 01/08/21 12:59 Lab Results 01/08/21 01/08/21 01/08/21 Range/Units 12:59 12:59 12:59 WBC 7.6 (3.8-10.6) k/uL RBC 5.20 (4.30-5.90) m/uL Hgb 17.3 (13.0-17.5) gm/dL Hct 48.2 (39.0-53.0) % MCV 92.6 (80.0-100.0) fL MCH 33.3 (25.0-35.0) pg MCHC 35.9 (31.0-37.0) g/dL RDW 13.2 (11.5-15.5) % Plt Count 217 (150-450) k/uL MPV 8.5 Neutrophils % 61 % Lymphocytes % 29 % Monocytes % 6 % Eosinophils % 2 % Basophils % 1 % Neutrophils # 4.6 (1.3-7.7) k/uL Lymphocytes # 2.2 (1.0-4.8) k/uL Monocytes # 0.5 (0-1.0) k/uL Eosinophils # 0.2 (0-0.7) k/uL Basophils # 0.0 (0-0.2) k/uL Sodium 138 (137-145) mmol/L Potassium 4.3 (3.5-5.1) mmol/L Chloride 106 (98-107) mmol/L Carbon Dioxide 21 L (22-30) mmol/L Anion Gap 11 mmol/L BUN 17 (9-20) mg/dL Creatinine 1.17 (0.66-1.25) mg/dL Est GFR (CKD-EPI)AfAm >90 (>60 ml/min/1.73 sqM) Est GFR (CKD-EPI)NonAf 81 (>60 ml/min/1.73 sqM) Glucose 94 (74-99) mg/dL Calcium 10.1 (8.4-10.2) mg/dL Total Bilirubin 1.1 (0.2-1.3) mg/dL AST 52 (17-59) U/L ALT 62 H (4-49) U/L Alkaline Phosphatase 63 (38-126) U/L Total Protein 8.8 H (6.3-8.2) g/dL Albumin 5.2 H (3.5-5.0) g/dL Amylase 81 (30-110) U/L Lipase 94 (23-300) U/L Urine Color Dark Yellow Urine Appearance Clear (Clear) Urine pH 6.0 (5.0-8.0) Ur Specific [place] 1.038 H (1.001-1.035) Urine Protein Trace H (Negative) Urine Glucose (UA) Negative (Negative) Urine Ketones Negative (Negative) Urine Blood Negative (Negative) Urine Nitrite Negative (Negative) Urine Bilirubin Negative (Negative) Urine Urobilinogen <2.0 (<2.0) mg/dL Ur Leukocyte Esterase Negative (Negative) Disposition Clinical Impression: Abdominal pain Disposition: Left Against Medical Advice Is patient prescribed a controlled substance at d/c from ED?: No Referrals: None,Stated [Primary Care Provider] - 1-2 days Time of Disposition: 15:26
[2021-01-08 13:38] LABS: Basophils % (A) 1 %; Eosinophils # (A) 0.2 k/uL (0-0.7); Eosinophils % (A) 2 %; HCT 48.2 % (39.0-53.0); HGB 17.3 gm/dL (13.0-17.5); Lymphocytes # (A) 2.2 k/uL (1.0-4.8); Lymphocytes % (A) 29 %; MCH 33.3 pg (25.0-35.0); MCHC 35.9 g/dL (31.0-37.0); MCV 92.6 fL (80.0-100.0); Mean Platelet Volume 8.5; Monocytes # (A) 0.5 k/uL (0-1.0); Monocytes % (A) 6 %; Neutrophils # (A) 4.6 k/uL (1.3-7.7); Neutrophils % (A) 61 %; Platelet Count 217 k/uL (150-450); RDW 13.2 % (11.5-15.5); WBC 7.6 k/uL (3.8-10.6)
[2021-01-08] MEDS ORDERED: methylPREDNISolone SOD SUCCI 125 MG/2 ML VIAL IV STA (13:39)
[2021-01-08] MEDS ORDERED: FAMOTIDINE 20 MG/2 ML VIAL IV STA (13:40)
[2021-01-08] MEDS ORDERED: diphenhydrAMINE 50 MG/ML 1 ML VIAL IVP STA (13:40)
[2021-01-08 13:44] VITALS: BP 139/84
[2021-01-08 13:46] LABS: Appearance,Urine Clear (Clear); Bilirubin,Urine Negative (Negative); Blood,Urine Negative (Negative); Color,Urine Dark Yellow; Glucose,Urine (UA) Negative (Negative); Ketones,Urine Negative (Negative); Leukocyte Esterase,Urine Negative (Negative); Nitrite,Urine Negative (Negative); Protein,Urine Trace (Negative); Specific Gravity,Urine 1.038 (1.001-1.035); Urobilinogen,Urine <2.0 mg/dL (<2.0)
[2021-01-08 13:57] LABS: ALT 62 U/L (4-49); AST 52 U/L (17-59); African American GFR (CKD) >90 (>60 ml/min/1.73 sqM); Albumin 5.2 g/dL (3.5-5.0); Alkaline Phosphatase 63 U/L (38-126); Amylase 81 U/L (30-110); Anion Gap 11 mmol/L; Blood Urea Nitrogen 17 mg/dL (9-20); Calcium 10.1 mg/dL (8.4-10.2); Carbon Dioxide 21 mmol/L (22-30); Chloride 106 mmol/L (98-107); Glucose 94 mg/dL (74-99); Lipase 94 U/L (23-300); Non-African American GFR(CKD) 81 (>60 ml/min/1.73 sqM); Potassium 4.3 mmol/L (3.5-5.1); Sodium 138 mmol/L (137-145); Total Bilirubin 1.1 mg/dL (0.2-1.3); Total Protein 8.8 g/dL (6.3-8.2)
[2021-01-08 14:17] VITALS: PULSE 96; RESP 18
--- NOTE | 2021-01-08 14:33 | CT ---
EXAMINATION TYPE: CT abdomen pelvis wo con DATE OF EXAM: 01/08/2021 COMPARISON: 01/27/2020 HISTORY: 35-year-old male Bilateral abdominal pain CT DLP: 889.6 mGycm. Automated exposure control for dose reduction was used. TECHNIQUE: Contiguous axial scanning of the abdomen and pelvis without IV contrast. Coronal and sagit deanna reconstructions performed. FINDINGS: Heart normal size without pericardial effusion. Mild dependent atelectasis in the lungs. No pleural effusions. Small hiatal hernia. Liver enlarged measuring 21.8 cm. Gallbladder, adrenal glands, and pancreas show no gross abnormality by noncontrast CT. The spleen is mildly enlarged at 14.0 cm measured on coronal series, image 68. There may be mild fold thickening along the gastric fundus and proximal to mid gastric body. No dilated small bowel, free fluid, or free air. No mesenteric or retroperitoneal lymphadenopathy. Scattered colonic diverticulosis, greatest in the sigmoid colon. No pericolonic inflammatory change. Normal appendix. Mild circumferential wall thickening of the rectum related to incomplete distention. Bladder incompletely distended. Prostate gland measures 4.4 cm wide. No abnormal fluid collection in the pelvis or pelvic lymphadenopathy. IMPRESSION: 1. Hepatosplenomegaly (liver 21.8 cm and spleen 14.0 cm). 2. Small hiatal hernia. 3. Mild circumferential wall thickening of the rectum to the from incomplete distention. Correlate t o exclude a short segment colitis. 4. There may be some fold thickening in the proximal to mid stomach as well that could reflect gastr itis. Clinically correlate. 5. Scattered colonic diverticulosis, greatest in the sigmoid colon without evidence for acute divert iculitis.
== END 2021-01-08 16:30 | disposition left against medical advice (07) ==
LOC: EC 12:23
DX: R10.13 Epigastric pain (principal); Z53.29 Procedure and treatment not carried out because of patient's decision for other reasons; Z88.8 Allergy status to other drugs, medicaments and biological substances; Z79.899 Other long term (current) drug therapy; Z87.891 Personal history of nicotine dependence
CPT/HCPCS: 36415; 93005; 80053; 82150; 83690; 85025; 81003; 74176; 99285; 96374; 96375 ×3; J1200; J2930; J1790